=== PATIENT | male | born 1945 | race Caucasian/White ===

== ENCOUNTER → 2016-10-27 | Outpatient (CLI) | payer BC ==
[~2016-10-27] MED LIST: ALL180 PO; ASPEC81 PO; ASPI81TA28 PO; CLB/200 PO; CLB200 PO; CYCL0.052 OP; DICL1GEL12 TOP; FENO160T PO; FEXO1TAB46 PO; FLM4 PO; FLUO0.1S2 OP; LRTUNK; METO50TA7 PO; MISCCAP80 PO; MOME50SP5; MOME6000; MULT-188 PO; PRLSR20 PO; RSTOPS OP; SILD100T PO; STLS; TRAM-10 PO; [UNRECOGNIZED DRUG - CODE]; nutraview
== END | disposition home or self-care (01) ==
LOC: C.RDSM 13:45
PROVIDERS: ATTEND Physical Medicine & Rehabilitation
DX: M54.5 Low back pain (principal)

== ENCOUNTER → 2016-11-09 | Outpatient (CLI) | payer BC ==
[~2016-11-09] MED LIST changes: -FLM4 PO; -LRTUNK; -STLS; -nutraview
--- NOTE | 2016-11-15 06:43 | CODING QUERY MEDICAL NECESSITY ---
CQSUPPORTING DIAGNOSIS NEEDED A supporting diagnosis is required for the test/procedure performed on this patient in order for us to be reimbursed by the patient's insurance. Please provide a supporting diagnosis for the following test/procedure listed below next to the test name along with your signature. *If there is no additional diagnosis for this patient that would support the following test/procedure please document that below next to the test/procedure. Test(s)/Procedure(s) that require a supporting diagnosis: DOS 11/09/16 PROSTATE SPECIFIC ANTIGEN (PSA) TEST Provider Signature: Date: Thank you Colette [facility] Once completed, please kindly fax back to [phone] For questions please call [phone]
== END | disposition home or self-care (01) ==
LOC: C.LABBFT 11:20
PROVIDERS: ATTEND Urology
DX: N52.9 Male erectile dysfunction, unspecified (principal); N40.1 Benign prostatic hyperplasia with lower urinary tract symptoms

== ENCOUNTER → 2016-11-30 | Day surgery (SDC) | payer BC ==
[2016-10-30 12:49] VITALS: Ht 170.2 cm; Wt 86.4 kg
[~2016-11-30] VITALS: Ht 170.2 cm; Wt 86.4 kg
[~2016-11-30] MED LIST changes: +BUPIVACAINE 0.25% 2.5MG/ML PF 10 ML VIAL ONE; +LIDOCAINE HCL 1% MPF 5 ML VIAL ONE
--- NOTE | 2016-11-30 13:41 | History & Physical Bridge - [place] ---
H&P Re-Evaluation Bridge Note: I have examined the patient, reviewed the History & Physical and in the interval since the performance of the History & Physical I have noted the following changes of clinical significance: No changes noted
[2016-11-30 14:05] VITALS: BP 145/83; PULSE 61; TEMP 36.7; O2SAT 95
--- NOTE | 2016-11-30 14:09 | Discharge Instructions ---
Discharge Instructions Date of Service Nov 30, 2016. Visit Reason for Visit: Low Back Pain Discharge Discharge Diagnosis / Problem: low back pain Discharge Goals Goal(s): Decrease discomfort, Improve function Activity Recommendations Activity Limitations: resume your previous activity Anesthesia . Post Anesthesia Instructions: If you have had General Anesthesia or IV Sedation: * Do not drive today. * Resume driving when surgeon permits. * Do not make important decisions or sign legal documents today. * Call surgeon for: 1. Temperature elevations greater than 101 degrees F. 2. Uncontrollable pain. 3. Excessive bleeding. 4. Persistent nausea and vomiting. 5. Medication intolerance (nausea, vomiting or rash). * For nausea and vomiting use only clear liquids such as: tea, soda, bouillon until nausea subsides, then gradually increase diet as tolerated. * If you have any concerns or questions, call your surgeon's office. If physician is unavailable and it is an emergency, call 911 or go to the nearest emergency room. . Diet Recommendations Recommended Home Diet: resume previous diet Procedures Procedures Performed: LEFT L4-5, L5-S1 MEDIAL BRANCH BLOCKS Pending Studies Studies pending at discharge: no Medical Emergencies . Who to Call and When: Medical Emergencies: If at any time you feel your situation is an emergency, please call 911 immediately. . Non-Emergent Contact Non-Emergency issues call your: Specialist . . "Provider Documentation" section prepared by Jewel Reid. .
--- NOTE | 2016-11-30 14:29 | OPERATIVE REPORT ---
DATE OF OPERATION: 11/30/2016 PREOPERATIVE DIAGNOSIS: Chronic low back pain, lumbar facet arthropathy. POSTOPERATIVE DIAGNOSIS: Same. PROCEDURE: Left L4-5, L5-S1 medial branch blocks under fluoroscopic guidance. INDICATIONS: The patient is a 71-year-old male who presents today with a longstanding history of low back pain that occurred for a number of years. He describes that he has the most pain as a sharp and jagging pain localized to the L4-L5 lumbar region on the left side, usually worse with standing and twisting. He presents today for medial branch blocks to confirm if indeed this is the pain generator in the back. PHYSICAL EXAMINATION: GENERAL: Pleasant male seated comfortably His lumbar paraspinal muscles were palpated and noted to be nontender. He had tenderness to palpation of the left L4-L5 facet area. It was worse with extension, extension rotation. He had negative seated straight leg raises and positive Gui maneuver on the left. CONSENT: Verbal and written consent was obtained from the patient. Risks and benefits were reviewed. Risks include but are not limited to abscess and allergic reaction. The patient wishes to proceed. PROCEDURE: The patient was taken back to the special procedures room of the [facility] where he was maintained in a prone position. Backside was cleansed with Betadine x3 and a dry sterile dressing was applied. Fluoroscope was used to identify the left L4 transverse process junction, the left L5 transverse process junction and the left sacral ala. Overlying skin was anesthetized with 1.25 mL of lidocaine 1% with a 25 gauge 1.5-inch needle overlying each target. He then underwent placement of a 25 gauge 3.5 inch spinal needle at each target. Under fluoroscopic guidance, these were placed at the sites on bone. He then underwent injection after negative aspiration of 1 mL of bupivacaine 0.25% at each of the 3 sites. DISPOSITION: 1. The patient is taken out into the discharge recovery area where he will be discharged home once discharge criteria have been met. 2. Follow up in the [facility] office in 2-4 weeks. I attest to the content of the Intraoperative Record and any orders documented therein. Any exception s are noted below.
== END | disposition home or self-care (01) ==
LOC: X.SURG 12:51
PROVIDERS: ATTEND Physical Medicine & Rehabilitation
DX: M47.817 Spondylosis without myelopathy or radiculopathy, lumbosacral region (principal)

== ENCOUNTER → 2017-01-10 | Day surgery (SDC) | payer BC ==
[2016-12-25 08:47] VITALS: Ht 170.2 cm; Wt 86.4 kg
[~2017-01-10] VITALS: Ht 170.2 cm; Wt 86.4 kg
[~2017-01-10] MED LIST changes: -ALL180 PO; -ASPEC81 PO; -CLB200 PO; +IOPAMIDOL INJ 61% 15 ML VIAL ONE; +METHYLPREDNISOLONE ACETATE 80 MG/ML VIAL ONE; -MOME50SP5; -RSTOPS OP; -[UNRECOGNIZED DRUG - CODE]
[2017-01-10 15:55] VITALS: TEMP 36.6
--- NOTE | 2017-01-10 15:55 | Discharge Instructions ---
Discharge Instructions Date of Service Jan 10, 2017. Visit Reason for Visit: Low Back Pain Discharge Discharge Diagnosis / Problem: low back pain Discharge Goals Goal(s): Decrease discomfort, Improve function Activity Recommendations Activity Limitations: resume your previous activity Anesthesia . Post Anesthesia Instructions: If you have had General Anesthesia or IV Sedation: * Do not drive today. * Resume driving when surgeon permits. * Do not make important decisions or sign legal documents today. * Call surgeon for: 1. Temperature elevations greater than 101 degrees F. 2. Uncontrollable pain. 3. Excessive bleeding. 4. Persistent nausea and vomiting. 5. Medication intolerance (nausea, vomiting or rash). * For nausea and vomiting use only clear liquids such as: tea, soda, bouillon until nausea subsides, then gradually increase diet as tolerated. * If you have any concerns or questions, call your surgeon's office. If physician is unavailable and it is an emergency, call 911 or go to the nearest emergency room. . Diet Recommendations Recommended Home Diet: resume previous diet Procedures Procedures Performed: LEFT L4-5, L5-S1 MEDIAL BRANCH BLOCKS Pending Studies Studies pending at discharge: no Medical Emergencies . Who to Call and When: Medical Emergencies: If at any time you feel your situation is an emergency, please call 911 immediately. . Non-Emergent Contact Non-Emergency issues call your: Specialist . . "Provider Documentation" section prepared by Jewel Reid. .
[2017-01-10 16:02] VITALS: BP 154/80; PULSE 66; O2SAT 96
--- NOTE | 2017-01-10 16:06 | OPERATIVE REPORT ---
DATE OF OPERATION: 01/10/2017 PREOPERATIVE DIAGNOSES: Chronic low back pain, lumbar facet arthropathy. POSTOPERATIVE DIAGNOSES: Same. PROCEDURE: Left L4-5, L5-S1 medial branch blocks. INDICATIONS FOR PROCEDURE: The patient is a 71-year-old white male that underwent successful left L4-5, L5-S1 medial branch blocks, and he returns today for a similar procedure to accommodate insurance requirements of 2 positive diagnostic blocks that are accounting for his chronic left-sided low back pain. PHYSICAL EXAMINATION: Pleasant male seated comfortably. He has point tenderness to palpation of his left L5-S1 facet, worse with extension and rotation. He had no problems with flexion. He has normal lower extremity strength. Negative seated straight leg raises. CONSENT: Verbal and written consent was obtained from the patient. Risks and benefits were reviewed. Risks include but are not limited to abscess and allergic reaction. The patient wishes to proceed. DESCRIPTION OF PROCEDURE: The patient was taken back to the special procedures room of the [facility] where he was maintained in a prone position. Backside was cleansed with Betadine x3 and a dry sterile dressing was applied. Fluoroscope was used to identify the left L4 transverse process junction and the left L5 transverse process junction and the left sacral ala. Overlying skin was anesthetized with 1.5 mL of lidocaine 1% at each site with a 25-gauge 1.5-inch needle. A 25-gauge 3.5-inch spinal needle was then placed at each site targeting the bony target and then he was injected following negative aspiration with 1 mL of bupivacaine 0.25%. Injections were well tolerated. DISPOSITION: The patient is taken out into the discharge area once discharge criteria have been met and he will follow up in the [facility] office in 2-4 weeks. I attest to the content of the Intraoperative Record and any orders documented therein. Any exception s are noted below.
== END | disposition home or self-care (01) ==
LOC: X.SURG 14:07
PROVIDERS: ATTEND Physical Medicine & Rehabilitation
DX: M47.817 Spondylosis without myelopathy or radiculopathy, lumbosacral region (principal); G89.29 Other chronic pain; Z79.82 Long term (current) use of aspirin

== ENCOUNTER → 2017-01-25 | Day surgery (SDC) | payer BC ==
[2016-12-25 08:55] VITALS: Ht 170.2 cm; Wt 86.4 kg
[~2017-01-25] VITALS: Ht 170.2 cm; Wt 86.4 kg
[~2017-01-25] MED LIST changes: -IOPAMIDOL INJ 61% 15 ML VIAL ONE; +LIDOCAINE HCL 1% 20 ML VIAL ONE; -LIDOCAINE HCL 1% MPF 5 ML VIAL ONE; -METHYLPREDNISOLONE ACETATE 80 MG/ML VIAL ONE
[2017-01-25 14:01] VITALS: TEMP 37.1
--- NOTE | 2017-01-25 14:04 | Discharge Instructions ---
Discharge Instructions Date of Service Jan 25, 2017. Visit Reason for Visit: Low Back Pain Discharge Discharge Diagnosis / Problem: low back pain Discharge Goals Goal(s): Decrease discomfort, Improve function Activity Recommendations Activity Limitations: resume your previous activity Anesthesia . Post Anesthesia Instructions: If you have had General Anesthesia or IV Sedation: * Do not drive today. * Resume driving when surgeon permits. * Do not make important decisions or sign legal documents today. * Call surgeon for: 1. Temperature elevations greater than 101 degrees F. 2. Uncontrollable pain. 3. Excessive bleeding. 4. Persistent nausea and vomiting. 5. Medication intolerance (nausea, vomiting or rash). * For nausea and vomiting use only clear liquids such as: tea, soda, bouillon until nausea subsides, then gradually increase diet as tolerated. * If you have any concerns or questions, call your surgeon's office. If physician is unavailable and it is an emergency, call 911 or go to the nearest emergency room. . Diet Recommendations Recommended Home Diet: resume previous diet Procedures Procedures Performed: LEFT L4-5, L5-S1 RADIO FREQUENCY DENERVATION Pending Studies Studies pending at discharge: no Medical Emergencies . Who to Call and When: Medical Emergencies: If at any time you feel your situation is an emergency, please call 911 immediately. . Non-Emergent Contact Non-Emergency issues call your: Specialist . . "Provider Documentation" section prepared by Jewel Reid. .
[2017-01-25 14:15] VITALS: BP 137/81; PULSE 61; O2SAT 96
--- NOTE | 2017-01-25 14:16 | OPERATIVE REPORT ---
DATE OF OPERATION: 01/25/2017 PREOPERATIVE DIAGNOSES: Chronic low back pain and left L4-L5 and L5-S1 facet arthropathy. POSTOPERATIVE DIAGNOSES: Same. PROCEDURE: Left L4-L5 and L5-S1 facet radiofrequency denervation. INDICATIONS: The patient is a 71-year-old white male that underwent a successful left L4-L5 and L5-S1 medial branch blocks. This confirmed that this is indeed the generator of this pain. He presents today for a denervation procedure to provide him with more of a long lasting 10-12 months of pain relief. PHYSICAL EXAMINATION: Pleasant male seated comfortably. He has point tenderness to palpation of the lower left lumbar region. This is worse with extension and rotation. He has normal motor and sensory examination of lower extremities. CONSENT: Verbal and written consent was obtained from the patient. Risks and benefits were reviewed. Risks include, but are not limited to abscess, allergic reaction and nerve denervation. He wishes to proceed. DESCRIPTION OF PROCEDURE: The patient was taken back to the special procedures room of the [facility], where he was maintained in a prone position. Backside was cleansed with Betadine x3 and a dry sterile dressing was applied. Fluoroscope was used to identify the left L4 transverse process junction, left L5 transverse process junction and the left sacral ala. Overlying skin was anesthetized with 2 mL of lidocaine 1% at each site. A 22-gauge 10-cm Mathew needle contacted the each site. He then underwent sensory stimulation, provoking a response of 0.2 volts at L4, 0.3 at L5 and 0.3 at the sacral ala. Motor stimulation at each separate site did not provoke any muscle twitching outside of the lumbar paraspinal muscles. He then underwent anesthetization with 1 mL of lidocaine 1% at each site, first at the L4, then at L5 and then S1 sacral ala and then radiofrequency denervation at 80 degrees 100 seconds x2 at each site, first at L4, then L5 and then the sacral ala and then, this was followed by post-procedure anesthetization with bupivacaine 0.25%, 1 mL at each site. The procedure was well tolerated. DISPOSITION: The patient was taken out into the discharge recovery area, where he will be discharged home once discharge criteria have been met. I attest to the content of the Intraoperative Record and any orders documented therein. Any exception s are noted below.
== END | disposition home or self-care (01) ==
LOC: X.SURG 12:29
PROVIDERS: ATTEND Physical Medicine & Rehabilitation
DX: M54.5 Low back pain (principal); G89.29 Other chronic pain; M46.97 Unspecified inflammatory spondylopathy, lumbosacral region; Z79.82 Long term (current) use of aspirin; Z79.899 Other long term (current) drug therapy

== ENCOUNTER → 2017-02-16 | Outpatient (CLI) | payer BC ==
[~2017-02-16] MED LIST changes: -BUPIVACAINE 0.25% 2.5MG/ML PF 10 ML VIAL ONE; -LIDOCAINE HCL 1% 20 ML VIAL ONE
--- NOTE | 2017-02-16 16:58 | DIAGNOSTIC IMAGING REPORT ---
LEFT SHOULDER MRI HISTORY: LEFT SHOULDER PAIN TECHNIQUE: Multiplanar multisequence MRI of the left shoulder was performed without contrast. COMPARISON STUDY: Left shoulder radiograph 12/15/2016. FINDINGS: AC joint: Moderate AC joint arthrosis demonstrated by edema both within and surrounding the joint space as well as joint space narrowing and small marginal osteophytes. Rotator cuff: The infraspinatus, teres minor, and subscapularis tendons appear intact. Focal full-thickness tear along the anterior fibers of the supraspinatus tendon which measures 14 x 9 mm. No significant fatty atrophy or retraction of the supraspinatus at this time. There is fluid within the subacromial/subdeltoid bursa due to the full-thickness tear. Labrum: Suboptimal evaluation due to the motion artifact. There appears to be degeneration of the labrum without a definite tear. Biceps tendon: Suboptimal evaluation due to motion artifact. However, the biceps tendon appears to be intact. Bones: No fracture or dislocation. Cartilage: Cartilage spaces are maintained for age. Miscellaneous: Small joint effusion primarily located within the subcoracoid bursa. IMPRESSION: 1. A focal full-thickness tear within the supraspinatus tendon. 2. Suboptimal evaluation of the labrum due to motion artifact. There is degeneration of the labrum without a definite tear. 3. Moderate AC joint arthrosis. Electronically signed by: Bharath Zarate M.D. 02/16/2017 4:57 PM Dictated Date/Time: 02/16/2017 4:50 PM
== END | disposition home or self-care (01) ==
LOC: C.MRIBC 15:21
PROVIDERS: ATTEND Orthopaedic Surgery
DX: M75.122 Complete rotator cuff tear or rupture of left shoulder, not specified as traumatic (principal)

== ENCOUNTER → 2017-03-12 | Outpatient (CLI) | payer BC ==
[~2017-03-12] MED LIST changes: +CYAN10005 PO; +MAGN1CAP2 PO
[2017-03-12 12:22] LABS: HEMATOCRIT 43.6 % (42-52); MEAN CELL VOLUME 100.7 fL (80-100); MEAN CORPUSCULAR HEMOGLOBIN 33.7 pg (25-34); MEAN CORPUSCULAR HGB CONC 33.5 g/dl (32-36); MEAN PLATELET VOLUME 11.6 fL (7.4-10.4); PLATELET COUNT 206 K/uL (130-400); RED BLOOD COUNT 4.33 M/uL (4.7-6.1); WHITE BLOOD COUNT 6.72 K/uL (4.8-10.8)
[2017-03-12 12:40] LABS: BLOOD UREA NITROGEN 23 mg/dl (7-18); BUN/CREATININE RATIO 16.7 (10-20); CALCIUM 8.8 mg/dl (8.5-10.1); CARBON DIOXIDE 27 mmol/L (21-32); CHLORIDE 107 mmol/L (98-107); CREATININE 1.35 mg/dl (0.60-1.40); GLUCOSE 104 mg/dl (70-99); POTASSIUM 4.5 mmol/L (3.5-5.1); SODIUM 139 mmol/L (136-145)
== END | disposition home or self-care (01) ==
LOC: C.LAB 09:48
PROVIDERS: ATTEND Orthopaedic Surgery
DX: M25.512 Pain in left shoulder (principal)

== ENCOUNTER → 2017-03-16 | Day surgery (SDC) | payer BC ==
[2017-03-12 11:25] VITALS: Ht 170.2 cm; Wt 87.3 kg
[~2017-03-16] VITALS: Ht 170.2 cm; Wt 87.3 kg
[~2017-03-16] MED LIST changes: +BUPIVACAINE 0.25% 2.5MG/ML PF 10 ML VIAL ONE; +IOPAMIDOL INJ 61% 15 ML VIAL ONE; +KETO10TA PO; +LIDOCAINE HCL 1% MPF 5 ML VIAL ONE; +OXYC-57 PO
[2017-03-16 15:28] VITALS: TEMP 36.6
--- NOTE | 2017-03-16 15:28 | Discharge Instructions ---
Discharge Instructions Date of Service Mar 16, 2017. Visit Reason for Visit: Sacroiliitis Discharge Discharge Diagnosis / Problem: low back pain Discharge Goals Goal(s): Decrease discomfort, Improve function Activity Recommendations Activity Limitations: resume your previous activity Anesthesia . Post Anesthesia Instructions: If you have had General Anesthesia or IV Sedation: * Do not drive today. * Resume driving when surgeon permits. * Do not make important decisions or sign legal documents today. * Call surgeon for: 1. Temperature elevations greater than 101 degrees F. 2. Uncontrollable pain. 3. Excessive bleeding. 4. Persistent nausea and vomiting. 5. Medication intolerance (nausea, vomiting or rash). * For nausea and vomiting use only clear liquids such as: tea, soda, bouillon until nausea subsides, then gradually increase diet as tolerated. * If you have any concerns or questions, call your surgeon's office. If physician is unavailable and it is an emergency, call 911 or go to the nearest emergency room. . Diet Recommendations Recommended Home Diet: resume previous diet Pending Studies Studies pending at discharge: no Medical Emergencies . Who to Call and When: Medical Emergencies: If at any time you feel your situation is an emergency, please call 911 immediately. . Non-Emergent Contact Non-Emergency issues call your: Specialist . . "Provider Documentation" section prepared by Jewel Reid. .
[2017-03-16 15:34] VITALS: BP 147/89; PULSE 71; O2SAT 95
--- NOTE | 2017-03-16 15:50 | OPERATIVE REPORT ---
DATE OF OPERATION: 03/16/2017 PREOPERATIVE DIAGNOSES: Chronic low back pain and left sacroiliitis. POSTOPERATIVE DIAGNOSES: Same. PROCEDURE: Left sacroiliac joint injection under fluoroscopic guidance. INDICATIONS: The patient is a 72-year-old white male who underwent denervation of the facet joint and had done well. Then, he began having pain a little bit lower than that area. It is localizing more to the sacroiliac joint. He presents today for a sacroiliac joint injection to try to relieve some of his lower left-sided pain. PHYSICAL EXAMINATION: Pleasant male seated comfortably. He has point tenderness to palpation over his left sacroiliac area. It is worse with extension. He has normal motor and sensory examination. Positive Gui maneuver, positive sacral distraction and compression maneuvers. CONSENT: Verbal and written consent was obtained from the patient. Risks and benefits were reviewed. Risks include, but are not limited to abscess and allergic reaction. He wishes to proceed. DESCRIPTION OF PROCEDURE: The patient was taken back to the special procedures room of the [facility], where he was maintained in a prone position. Backside was cleansed with Betadine x3. Dry sterile dressing was applied. Fluoroscope was used to identify the left sacroiliac joint. The overlying skin was anesthetized with 2.5 mL of lidocaine 1% with a 25-gauge 1-1/2 inch needle. A 25-gauge 3-1/2 spinal needle was then placed and under fluoroscopic guidance, was guided down to the SI joint. Isovue-300 contrast 0.25 mL was injected in which demonstrated an intra-articular pattern. He then underwent injection after negative aspiration of 40 mg of Depo-Medrol and 1.5 mL of bupivacaine 0.25%. Injection was well tolerated. DISPOSITION: 1. The patient was taken out into the discharge recovery area, where he will be discharged home once discharge criteria have been met. 2. Follow up in the [facility] office in 4 weeks' time. I attest to the content of the Intraoperative Record and any orders documented therein. Any exception s are noted below.
== END | disposition home or self-care (01) ==
LOC: X.SURG 14:06
PROVIDERS: ATTEND Physical Medicine & Rehabilitation
DX: M46.1 Sacroiliitis, not elsewhere classified (principal)

== ENCOUNTER → 2017-03-22 | Day surgery (SDC) | payer BC ==
[2017-03-12 12:07] VITALS: Ht 170.2 cm; Wt 87.3 kg
[~2017-03-22] VITALS: Ht 170.2 cm; Wt 87.3 kg
[~2017-03-22] MED LIST changes: +ATROPINE SULFATE 0.1 MG/ML 5ML SYR IV PRN; -BUPIVACAINE 0.25% 2.5MG/ML PF 10 ML VIAL ONE; +BUPIVACAINE/EPINEPHRINE 0.25% 1:200,000 30 ML VIAL ONE; +BUPIVACAINE/EPINEPHRINE 0.5% MPF 1:200,000 30 ML VIAL ONE; +CLINDAMYCIN PHOS 150 MG/ML 2 ML VIAL IV SCH; +DEXAMETHASONE SOD INJ 4 MG/ML VIAL ONE; +EpHEDrine SULFATE INJ 50 MG/ML AMP IV PRN; +EpINEphrine INJ 1MG/ML AMP 1 MG/ML AMP ONE; +FENTANYL CITRATE INJ 50 MCG/1 ML 2 ML VIAL IV PRN; +FENTANYL CITRATE INJ 50 MCG/1 ML 2 ML VIAL ONE; -IOPAMIDOL INJ 61% 15 ML VIAL ONE; +LACTATED RINGER'S 1000ML 1,000 ML IV SCH; -LIDOCAINE HCL 1% MPF 5 ML VIAL ONE; +LIDOCAINE HCL 2% 2 ML VIAL (20MG/ML) ONE; -METO50TA7 PO; +METO50TA8 PO; +MIDAZOLAM HCL 1 MG/ML 2ML VIAL ONE; +ONDANSETRON INJ 2 MG/ML 2 ML VIAL IV PRN; +ONDANSETRON INJ 2 MG/ML 2 ML VIAL ONE; +OXYCODONE/ACETAMINOPHEN 5-325 TAB PO PRN; +PROPOFOL IV EMULSION 10 MG/ML 20 ML VIAL IV ONE; +SODIUM CHLORIDE 0.9% 1000ML 1,000 ML IV SCH
--- NOTE | 2017-03-22 10:29 | [facility] Post Operative Brief Note ---
Immediate Operative Summary Operative Date Mar 22, 2017. Pre-Operative Diagnosis Left Shoulder Full Thickness Cuff Tear Post-Operative Diagnosis same Procedure(s) Performed Left Shoulder Arthroscopy, Medium Rotator Cuff Repair, Open Bicep Tenodesis Surgeon Dr Gonzalez Intranet Developer Surgeon(s) MILES Grullon Estimated Blood Loss 5cc Findings as above Specimens none Complication(s) None Disposition Recovery Room / PACU
[2017-03-22 10:33] VITALS: TEMP 36.5
--- NOTE | 2017-03-22 10:35 | Discharge Instructions-SurgCtr ---
Discharge Instructions Date of Service Mar 22, 2017. Visit Reason for Visit: Left Shoulder Full Thickness Cuff Tear Discharge Discharge Diagnosis / Problem: SAME ABOVE Discharge Goals Goal(s): Decrease discomfort, Improve function Medications Stopped Medications Name(s): celebrex stopped. last dose 1 week ago. Restart Stopped Medication(s): MAY RESTART WHEN FINISHED WITH TORADOL TAKE TORADOL EVERY 8 HOURS WITH FOOD Activity Recommendations Activity Limitations: as noted below Lifting Limitations: until after follow-up appointment Exercise/Sports Limitations: until after follow-up appointment Shower/Bathe: tomorrow Anesthesia . Post Anesthesia Instructions: If you have had General Anesthesia or IV Sedation: * Do not drive today. * Resume driving when surgeon permits. * Do not make important decisions or sign legal documents today. * Call surgeon for: 1. Temperature elevations greater than 101 degrees F. 2. Uncontrollable pain. 3. Excessive bleeding. 4. Persistent nausea and vomiting. 5. Medication intolerance (nausea, vomiting or rash). * For nausea and vomiting use only clear liquids such as: tea, soda, bouillon until nausea subsides, then gradually increase diet as tolerated. * If you have any concerns or questions, call your surgeon's office. If physician is unavailable and it is an emergency, call 911 or go to the nearest emergency room. . Instructions / Follow-Up Instructions / Follow-Up MEDICATIONS: * Resume previous medications unless instructed otherwise by your surgeon. * Always take pain medication on a full stomach or with food to avoid upset stomach. * Do not drink alcohol or drive while taking narcotics. * Ibuprofen or Tylenol may be taken if narcotic not needed. SPECIAL CARE INSTRUCTIONS: __ None _X_ Keep extremity elevated and iced x 48 hours; apply ice 20-30 minutes 8-10 times/day. May remove at night. __ Sling __24 hrs/day __ Remove at night _X_ Shoulder Immobilizer (MAY REMOVE AFTER 48 HOURS ONLY TO SHOWER) _X_ 24 hrs/day __ Remove at night _X_ Dressing __ Maintain until seen in office, may shower with plastic over site _X_ Remove dressings in 24-48 hours and then may shower _X_ Cover incisions with band-aids after showering __ Do not remove steri-strips Call physician if chills or temperature rises above 102 degrees or pain unrelieved by prescribed pain medications at . . Diet Recommendations Home Diet: no limitations Fluid Restriction: None Procedures Procedures Performed: Left Shoulder Arthroscopy, Medium Rotator Cuff Repair, Open Bicep Tenodesis Pending Studies Studies pending at discharge: no Work Instructions Return To Work: after follow-up Lifting Limitations: NO LIFTING WITH LEFT ARM Medical Emergencies . Who to Call and When: Medical Emergencies: If at any time you feel your situation is an emergency, please call 911 immediately. . Non-Emergent Contact Non-Emergency issues call your: Primary Care Provider Call Non-Emergent contact if: you have a fever, temperature is above 101.5 . . "Provider Documentation" section prepared by Jarrod Alicea. .
[2017-03-22 11:25] VITALS: BP 148/88; PULSE 74; O2SAT 95
--- NOTE | 2017-03-22 11:37 | Anesthesiology Progress Note ---
Anesthesia Post Op Note Date & Time Mar 22, 2017 at 11:37 Vital Signs Pain Intensity: 0 Vital Signs Past 12 Hours Date Time Temp Pulse Resp B/P (MAP) Pulse Ox O2 Delivery O2 Flow Rate FiO2 03/22/17 11:25 74 18 148/88 (108) 95 Room Air 03/22/17 10:33 36.5 79 16 122/82 (95) 93 Room Air 03/22/17 08:58 62 03/22/17 08:58 62 22 99 03/22/17 08:57 63 25 99 03/22/17 08:57 64 03/22/17 08:56 135/76 03/22/17 08:52 59 03/22/17 08:52 60 23 99 03/22/17 08:51 136/79 03/22/17 08:50 59 03/22/17 08:50 59 23 99 03/22/17 08:46 137/84 03/22/17 08:45 58 45 98 03/22/17 08:45 52 03/22/17 08:41 128/78 03/22/17 08:40 57 7 97 03/22/17 08:40 54 03/22/17 08:38 141/90 03/22/17 08:35 59 03/22/17 08:35 63 0 96 03/22/17 08:30 65 0 96 03/22/17 08:30 63 03/22/17 08:25 66 0 96 03/22/17 08:25 67 03/22/17 08:20 68 0 96 03/22/17 08:20 64 03/22/17 08:15 54 03/22/17 08:15 55 0 94 03/22/17 08:10 53 0 94 03/22/17 08:10 54 03/22/17 08:05 54 0 94 03/22/17 08:05 55 03/22/17 08:00 56 0 95 03/22/17 08:00 56 03/22/17 07:55 0 03/22/17 06:41 36.4 60 18 146/80 (102) 95 Room Air Notes Mental Status: alert / awake / arousable, participated in evaluation Pt Amnestic to Procedure: Yes Nausea / Vomiting: adequately controlled Pain: adequately controlled Airway Patency, RR, SpO2: stable & adequate BP & HR: stable & adequate Hydration State: stable & adequate Anesthetic Complications: no major complications apparent
--- NOTE | 2017-03-22 11:38 | OPERATIVE REPORT ---
DATE OF OPERATION: 03/22/2017 PREOPERATIVE DIAGNOSIS: Medium sized left rotator cuff tear. POSTOPERATIVE DIAGNOSIS: Same. PROCEDURE: Left shoulder diagnostic arthroscopy with limited debridement, acromioplasty and medium sized rotator cuff repair. SURGEON: Dr. Juan Gonzalez. RECEPTION INTERVIEWER: Dayron Alicea PA-C, whose assistance was necessary for positioning the arm and helping with instrumentation. ANESTHESIA: Sedation with a left interscalene nerve block. COMPLICATIONS: None. CONDITION: Stable to PACU. INDICATIONS: Abelardo is a very pleasant 72-year-old male who was swinging a golf club back in August when he felt a tearing of his right shoulder. MRI and clinical examination were diagnostic for medium sized rotator cuff tear. After failing conservative treatment, he elected to undergo arthroscopy. DESCRIPTION OF PROCEDURE: On 03/22/2017, he arrived at [facility] for the above procedure. He was seen in the preoperative holding area and the operative extremity was identified and signed. He was given preoperative antibiotic and left interscalene nerve block. He was taken back to the operating room, laid on the table in supine position and put under basic sedation. The left shoulder was then prepped and draped in sterile fashion. Time-out was done and the patient and operative extremity was properly identified. A scope was introduced in the posterior portal. Diagnostic arthroscopy showed no cartilage damage to the humeral head or the glenoid. There was some fraying of the anterior labrum. The biceps tendon looked okay. From the articular side, there was no evidence of tears. The supraspinatus, infraspinatus, teres minor and subscapularis looked okay. An anterior portal was made. A shaver was used to do a limited debridement of the intraarticular structures and the biceps tendon was pulled into the joint and showed no evidence of pathology. The scope was then put into the subacromial space. A lateral portal was made. A shaver was used to do a complete subacromial and subdeltoid bursectomy. There was a strange bursal sided tear of the rotator cuff. It started in the anterior lateral footprint and extended posterior medially towards the infraspinatus. The footprint was not exposed, but the tear was near complete down to bone. There was a tear that was amenable to margin convergence. An ablator was then used to tease the coracoacromial ligament off the undersurface of the acromion and a 5-0 lissette was used to complete an acromioplasty of a Bigliani type 3 acromion. A shaver was used to remove any excess debris. Attention was then turned to the rotator cuff. An additional anterolateral portal was made and Sarah cannulas were placed in each of the lateral portals. I felt this was best treated with margin convergence. Three sutures were placed for a margin convergence repair and an Arthrex FiberLink was used to tag the anterior lateral flap and bring it down to a single 5.5 mm BioComposite SwiveLock suture anchors. This gave a nice anatomic repair. Multiple pictures were taken. The scope was put back into the glenohumeral joint. There was no disruption of the articular margin. The biceps tendon was pulled into the joint and I still found no evidence of pathology. The arthroscopic instruments were removed from the shoulder. Portal sites were closed with 3-0 nylon. He was then placed in a soft dressing and abduction arm sling. He was then extubated, [facility] and taken to the postanesthesia care unit in stable condition. He tolerated the procedure well. I attest to the content of the Intraoperative Record and any orders documented therein. Any exception s are noted below.
== END | disposition home or self-care (01) ==
LOC: X.SURG 06:31
PROVIDERS: ATTEND Orthopaedic Surgery
DX: S46.012A Strain of muscle(s) and tendon(s) of the rotator cuff of left shoulder, initial encounter (principal); X58.XXXA Exposure to other specified factors, initial encounter; Y93.53 Activity, golf; G47.33 Obstructive sleep apnea (adult) (pediatric); I10 Essential (primary) hypertension; Z88.0 Allergy status to penicillin; Z85.828 Personal history of other malignant neoplasm of skin

== ENCOUNTER → 2017-07-05 | Outpatient (CLI) | payer BC ==
[~2017-07-05] MED LIST changes: -ATROPINE SULFATE 0.1 MG/ML 5ML SYR IV PRN; -BUPIVACAINE/EPINEPHRINE 0.25% 1:200,000 30 ML VIAL ONE; -BUPIVACAINE/EPINEPHRINE 0.5% MPF 1:200,000 30 ML VIAL ONE; -CLINDAMYCIN PHOS 150 MG/ML 2 ML VIAL IV SCH; -DEXAMETHASONE SOD INJ 4 MG/ML VIAL ONE; -EpHEDrine SULFATE INJ 50 MG/ML AMP IV PRN; -EpINEphrine INJ 1MG/ML AMP 1 MG/ML AMP ONE; -FENTANYL CITRATE INJ 50 MCG/1 ML 2 ML VIAL IV PRN; -FENTANYL CITRATE INJ 50 MCG/1 ML 2 ML VIAL ONE; -KETO10TA PO; -LACTATED RINGER'S 1000ML 1,000 ML IV SCH; -LIDOCAINE HCL 2% 2 ML VIAL (20MG/ML) ONE; -MIDAZOLAM HCL 1 MG/ML 2ML VIAL ONE; -ONDANSETRON INJ 2 MG/ML 2 ML VIAL IV PRN; -ONDANSETRON INJ 2 MG/ML 2 ML VIAL ONE; -OXYCODONE/ACETAMINOPHEN 5-325 TAB PO PRN; -PROPOFOL IV EMULSION 10 MG/ML 20 ML VIAL IV ONE; -SODIUM CHLORIDE 0.9% 1000ML 1,000 ML IV SCH
== END | disposition home or self-care (01) ==
LOC: C.PATHSPEC 17:30
PROVIDERS: ATTEND Dermatology
DX: L57.0 Actinic keratosis (principal); D04.62 Carcinoma in situ of skin of left upper limb, including shoulder

== ENCOUNTER → 2017-07-11 | Day surgery (SDC) | payer BC ==
[2017-06-14 10:11] VITALS: Ht 170.2 cm; Wt 87.3 kg
[~2017-07-11] VITALS: Ht 170.2 cm; Wt 87.3 kg
[~2017-07-11] MED LIST changes: +ATROPINE SULFATE 0.1 MG/ML 5ML SYR IV PRN; +EpHEDrine SULFATE INJ 50 MG/ML AMP IV PRN; +LACTATED RINGER'S 1000ML 1,000 ML IV SCH; +LIDOCAINE HCL 1% 20 ML VIAL ONE
--- NOTE | 2017-07-11 08:46 | [facility] Post Operative Brief Note ---
Immediate Operative Summary Operative Date Jul 11, 2017. Pre-Operative Diagnosis Sacrolitis Post-Operative Diagnosis Same as pre-op Procedure(s) Performed Left Sacroiliac Joint Cooled Radio Frequency Denervation Surgeon Manager Audit Surgeon(s) None Estimated Blood Loss 0 Findings Consistent with Post-Op Diagnosis Specimens None Drains None Anesthesia Type MAC Complication(s) none Disposition Disposition:
[2017-07-11 08:48] VITALS: TEMP 36.5
--- NOTE | 2017-07-11 08:48 | Discharge Instructions ---
Discharge Instructions Date of Service Jul 11, 2017. Visit Reason for Visit: Sacroiliitis Discharge Discharge Diagnosis / Problem: low back pain Discharge Goals Goal(s): Decrease discomfort, Improve function Activity Recommendations Activity Limitations: resume your previous activity Anesthesia . Post Anesthesia Instructions: If you have had General Anesthesia or IV Sedation: * Do not drive today. * Resume driving when surgeon permits. * Do not make important decisions or sign legal documents today. * Call surgeon for: 1. Temperature elevations greater than 101 degrees F. 2. Uncontrollable pain. 3. Excessive bleeding. 4. Persistent nausea and vomiting. 5. Medication intolerance (nausea, vomiting or rash). * For nausea and vomiting use only clear liquids such as: tea, soda, bouillon until nausea subsides, then gradually increase diet as tolerated. * If you have any concerns or questions, call your surgeon's office. If physician is unavailable and it is an emergency, call 911 or go to the nearest emergency room. . Diet Recommendations Recommended Home Diet: resume previous diet Procedures Procedures Performed: Left Sacroiliac Joint Cooled Radio Frequency Denervation Pending Studies Studies pending at discharge: no Medical Emergencies . Who to Call and When: Medical Emergencies: If at any time you feel your situation is an emergency, please call 911 immediately. . Non-Emergent Contact Non-Emergency issues call your: Specialist . . "Provider Documentation" section prepared by Jewel Reid. .
--- NOTE | 2017-07-11 09:06 | Anesthesia Progress Nt - [facility] ---
Anesthesia Post Op Note Date & Time Jul 11, 2017 at 09:06 Vital Signs Pain Intensity: 0 Vital Signs Past 12 Hours Date Time Temp Pulse Resp B/P (MAP) Pulse Ox O2 Delivery O2 Flow Rate FiO2 07/11/17 08:48 36.5 65 16 150/87 (108) 96 Room Air 07/11/17 07:11 36.2 59 20 129/66 (87) 94 Room Air Notes Mental Status: alert / awake / arousable, participated in evaluation Pt Amnestic to Procedure: Yes Nausea / Vomiting: adequately controlled Pain: adequately controlled Airway Patency, RR, SpO2: stable & adequate BP & HR: stable & adequate Hydration State: stable & adequate Anesthetic Complications: no major complications apparent
[2017-07-11 09:12] VITALS: BP 137/87; PULSE 60; O2SAT 95
--- NOTE | 2017-07-11 10:51 | OPERATIVE REPORT ---
DATE OF OPERATION: 07/11/2017 PREOPERATIVE DIAGNOSIS: Left sacroiliitis. POSTOPERATIVE DIAGNOSIS: Left sacroiliitis. PROCEDURE: Left radiofrequency cooled SI joint denervation. INDICATIONS: The patient is a 72-year-old white male received good results from a SI joint injection that was diagnostically helpful for his pain; however, it lasted a short period of time. Decision is made to proceed with a denervation procedure, which should provide him with months to a year of relief of the sacroiliac joint pain that he quantifies range currently in the 5-8/10 category. PHYSICAL EXAMINATION: Pleasant male seated comfortably. He has point tenderness to palpation of his left SI joint, which is worse with extension and rotation. Negative seated straight leg raises with a positive Gui maneuver. CONSENT: Verbal and written consent was obtained from the patient. Risks and benefits were reviewed. Risks include but are not limited to infection, allergic reaction in cooled denervation. He wishes to proceed. PROCEDURE: The patient was taken back into OR #[facility] of the [facility], where he was maintained in a prone position. Backside was cleansed with Betadine x3 and a dry sterile dressing was applied. Fluoroscope was used to identify the sacrum and the overlying skin lateral to S1 foramen was anesthetized with 7 mL of lidocaine 1% with a 25 gauge 1/2 inch needle. A cooling needle was then placed at 8 separate points and had 2 minutes and 30 seconds of 60 degrees Celsius cooling. The patient was awake for the entire procedure and could converse freely. The 8 sites in the order and that they were done, where the left sacral ala, the left lateral superior S1 outside of the foraminal area, the left lateral S1 foraminal region, the left S1 inferior lateral foraminal region, the left superior S2 outer foraminal region, the left S2 lateral foraminal region, the left S2 inferior lateral foramen region, and lastly the left S3 superior lateral foraminal region and all of the targets were on the bone, outside of the foramen itself. Procedure was well tolerated. DISPOSITION: 1. He was taken out into the discharge recovery area, where he will be discharged home once discharge criteria were met. 2. Follow up in the [facility] office in 4 weeks' time. I attest to the content of the Intraoperative Record and any orders documented therein. Any exception s are noted below.
== END | disposition home or self-care (01) ==
LOC: X.SURG 06:52
PROVIDERS: ATTEND Physical Medicine & Rehabilitation
DX: M46.1 Sacroiliitis, not elsewhere classified (principal); G47.33 Obstructive sleep apnea (adult) (pediatric); I10 Essential (primary) hypertension; E78.5 Hyperlipidemia, unspecified; Z79.82 Long term (current) use of aspirin; Z88.0 Allergy status to penicillin

== ENCOUNTER → 2017-07-23 | Outpatient (CLI) | payer BC ==
[~2017-07-23] MED LIST changes: -ATROPINE SULFATE 0.1 MG/ML 5ML SYR IV PRN; -EpHEDrine SULFATE INJ 50 MG/ML AMP IV PRN; -LACTATED RINGER'S 1000ML 1,000 ML IV SCH; -LIDOCAINE HCL 1% 20 ML VIAL ONE
--- NOTE | 2017-07-23 16:13 | DIAGNOSTIC IMAGING REPORT ---
CERVICAL WITHOUT CONTRAST HISTORY: Pain. Neuropathy. CERVICAL RADICULOPATHY TECHNIQUE: Multiplanar multisequence MRI of the cervical spine was performed without the use of contrast. COMPARISON STUDY: None. FINDINGS: Moderate degenerative disc change throughout the entire cervical region. Degenerative irregularity of the vertebral endplates throughout. Signal characteristics of the cervical cord based on the sagittal images are unremarkable. C2-C3: Broad-based bulging disc in contact with but showing no significant deformity of the cervical cord. Moderate narrowing of the neuroforamina bilaterally. C3-C4: Mild broad-based disc herniation. Significant osteophytic narrowing of the neuroforamina bilaterally. C4-C5: Moderate broad-based disc herniation. Mild impact anterior cervical cord. Significant osteophytic narrowing of the neuroforamina bilaterally C5-C6: Mild broad-based disc herniation. Moderate osteophytic narrowing of the neuroforamina bilaterally. C6-C7: Right central bulging disc with minimal impact anterior right cervical cord. Significant osteophytic narrowing of the neuroforamina bilaterally C7-T1: Minimal osteophytic narrowing of the neuroforamina bilaterally IMPRESSION: 1. Mild/moderate broad-based disc herniations at virtually all levels of the cervical region from C2 through C6. 2. Moderate to severe multilevel osteophytic narrowing of the neuroforamina bilaterally. 3. Significant degenerative disc changes throughout. 4. No evidence for a high-grade component of spinal stenosis The above report was generated using voice recognition software. It may contain grammatical, syntax or spelling errors. Electronically signed by: Abelardo Stevenson M.D. 07/23/2017 4:11 PM Dictated Date/Time: 07/23/2017 4:05 PM
== END ==
LOC: C.MRIBC 14:33
PROVIDERS: ATTEND Orthopaedic Surgery
DX: M54.12 Radiculopathy, cervical region (principal); M50.221 Other cervical disc displacement at C4-C5 level; M50.222 Other cervical disc displacement at C5-C6 level; M50.21 Other cervical disc displacement, high cervical region

== ENCOUNTER → 2017-08-16 | Outpatient (CLI) | payer BC | END | disposition home or self-care (01) | LOC: C.PATHSPEC 19:15 | PROVIDERS: ATTEND Plastic Surgery | DX: L90.5 Scar conditions and fibrosis of skin (principal) ==

== ENCOUNTER → 2017-11-02 | Outpatient (CLI) | payer BC | END | disposition home or self-care (01) | LOC: C.LAB1850 09:58 | PROVIDERS: ATTEND Urology | DX: N40.1 Benign prostatic hyperplasia with lower urinary tract symptoms (principal) ==

== ENCOUNTER 2018-12-24 17:34 | Inpatient (IN) ==
[2018-12-24] MEDS ORDERED: SODIUM CHLORIDE 0.9% 1000ML 1,000 ML IV SCH (19:30)
[2018-12-24 19:54] LABS: Basophils # (auto) 0.02 K/uL (0-0.2); Basophils % (auto) 0.2 %; Eosinophils # (auto) 0.12 K/uL (0-0.5); Eosinophils % (auto) 1.2 %; Hematocrit (blood only) 40.1 % (42-52); Hemoglobin 13.9 g/dL (14.0-18.0); Immature Granulocytes # (auto) 0.04 K/uL (0.00-0.02); Immature Granulocytes % (auto) 0.4 %; Lymphocytes # (auto) 1.44 K/uL (1.2-3.4); Lymphocytes % (auto) 14.5 %; Mean Corpuscular Hemoglobin 33.6 pg (25-34); Mean Corpuscular Hgb Conc 34.7 g/dL (32-36); Mean Corpuscular Volume 96.9 fL (80-100); Mean Platelet Volume 12.5 fL (7.4-10.4); Monocytes # (auto) 0.75 K/uL (0.11-0.59); Monocytes % (auto) 7.6 %; Neutrophils # (auto) 7.54 K/uL (1.4-6.5); Neutrophils % (auto) 76.1 %; Platelet Count 204 K/uL (130-400); RDW Coefficient of Variation 12.4 % (11.5-14.5); RDW Standard Deviation 43.9 fL (36.4-46.3); Red Blood Count 4.14 M/uL (4.7-6.1); White Blood Count 9.91 K/uL (4.8-10.8)
--- NOTE | 2018-12-24 19:55 | XRay Report ---
XR chest 1V portable HISTORY: 73 years-old Male Chest Pain acute atypical chest pain COMPARISON: Chest radiograph 12/28/2009 TECHNIQUE: Portable AP view of the chest FINDINGS: Cardiomediastinal and hilar silhouettes are unchanged. Calcified plaque of the thoracic aortic arch. Interstitial coarsening of the lung bases suggest atelectasis/scarring. No pneumothorax, pleural effu leona or overt pulmonary edema. Bones of the chest appear grossly intact. IMPRESSION: No acute process. The above report was generated using voice recognition software. It may contain grammatical, syntax o r spelling errors. Electronically signed by: Lewis Kennedy M.D. 12/24/2018 7:53 PM
[2018-12-24 20:06] LABS: Partial Thromboplastin Ratio 0.9; Partial Thromboplastin Time 24.5 Seconds (21.0-31.0); Prothrombin Time 10.7 Seconds (9.0-12.0)
[2018-12-24 20:09] LABS: Alanine Aminotransferase 102 U/L (12-78); Albumin Level 3.6 gm/dl (3.4-5.0); Aspartate Aminotransferase 58 U/L (15-37); BUN Creatinine Ratio 16.5 (10-20); Bilirubin Direct 0.9 mg/dl (0-0.2); Bilirubin,Total 1.3 mg/dl (0.2-1); Blood Urea Nitrogen 36 mg/dl (7-18); Calcium 9.8 mg/dl (8.5-10.1); Carbon Dioxide 24 mmol/L (21-32); Chloride 95 mmol/L (98-107); Creatinine Clr Calc Pharmacy 30.3 ml/min; Est GFR (African American) 33.3; Est GFR (Non-African American) 28.7; Glucose 532 mg/dl (70-99); Lipase 218 U/L (73-393); Potassium 4.4 mmol/L (3.5-5.1); Sodium 128 mmol/L (136-145); Total Protein 7.5 gm/dl (6.4-8.2)
[2018-12-24 20:11] LABS: Alkaline Phosphatase 264 U/L (45-117); Troponin I < 0.015 ng/ml (0-0.045)
[2018-12-24 20:25] LABS: Beta-Hydroxybutyrate 1.51 mg/dl (0.2-2.81)
--- NOTE | 2018-12-24 21:24 | Ultrasound Report ---
ABDOMINAL ULTRASOUND, RIGHT UPPER QUADRANT HISTORY: Right upper quadrant pain.. COMPARISON: Abdominal CT 10/30/2008. FINDINGS: Pancreas: There is a 6.7 cm hypoechoic mass superior to and possibly involving the pancreas. This cou ld Liver: Multiple hepatic masses with the largest measuring 7.0 cm. Gallbladder: No gallbladder wall thickening. No gallstones. CBD: 4 mm. Right kidney: No hydronephrosis. IMPRESSION: A 6.7 cm hypoechoic mass either within or superior to the pancreas. There are also multiple hepatic m asses concerning for metastatic disease. A follow-up abdominal CT or MRI is recommended for further e valuation. Electronically signed by: Bharath Zarate M.D. 12/24/2018 9:23 PM
--- NOTE | 2018-12-24 21:26 | Ultrasound Report ---
RENAL ULTRASOUND HISTORY: Acute kidney injury. COMPARISON: Renal ultrasound 09/30/2008. FINDINGS: Right kidney: 11.5 cm. A 1.4 cm upper pole cyst. No hydronephrosis. Focal scarring at the mid pole, u nchanged. Left kidney: 11.5 cm. A 1.4 cm mid pole cyst. No hydronephrosis. Normal corticomedullary differentiat ion and cortical thickness. Bladder: Bladder wall trabeculation. The bilateral ureteral jets were identified. IMPRESSION: Small bilateral renal cysts. No hydronephrosis. Electronically signed by: Bharath Zarate M.D. 12/24/2018 9:24 PM
--- NOTE | 2018-12-24 22:49 | History & Physical Report ---
Date of Service December 24, 2018 Assessment & Plan (1) Pancreatic mass: Patient with vague symptoms of fatigue, bloating as well as significant weight loss over the last 3 months. US of the gall bladder revealed a large 6.7cm hypoechoic mass either within or superior to the pancreas as well as multiple hepatic masses concerning for metastatic disease. Concern for malignant process of the pancreas. Patient is aware of the findings. -Admit to medical floor -Check CA 19-9 with AM labs -Check MRI abdomen -Repeat LFTs in AM -Further consultation pending results of above studies Present on Admission?: Yes (2) Acute kidney injury: Patient with elevated BUN of 36, Cr of 2.21. Electrolytes WNL. He is urinating without difficulty -Check urine Na and urea -Monitor I/Os -NSS at 125mL/hr x 2 liters -Repeat chemistry panel in the AM Present on Admission?: Yes (3) Hyperglycemia: Blood sugar elevated on arrival. Most likely secondary to underlying pancreatic disease -Lantus 5u BID -ISS -Hold Metformin while inpatient -Continue to monitor Present on Admission?: Yes (4) Hyponatremia: In=108, previously normal. No neurological symptoms or seizure. Most likely secondary to underlying ?malignancy -Check urine and serum osmolality -Check random urine Na -NSS as above for treatment of LAYNE. If this is malignancy related SIADH patient may need free water restriction -Repeat chemistry panel in AM Present on Admission?: Yes (5) Hypercholesterolemia: Chronic. Stable -Hold fenofibrate Present on Admission?: Yes (6) Hypertension: Chronic. Blood pressure mildly elevated at 149/80 -Hold HCTZ in setting of hyponatremia -Continue Metoprolol F/E/N - NSS at 125mL/hr x 2 liters, monitor electrolytes and correct as needed, management of Na as above, CC diet as tolerated Ppx - Continue Omeprazole, Lovenox for DVT ppx Code - Full Dispo - Admit to medical floor Present on Admission?: Yes History of Present Illness Chief Complaint: abnormal labs Primary Care Provider: Jefferson Edwards MD Mr. Lowery is a pleasant 73yo C male with history of ISIDRO, HTN, GERD, HLP and newly diagnosed DM. He was seen in the outpatient clinic with complaint of persistent fatigue, abdominal bloating and upper abdominal discomfort. He report waking up 5-7 times per night due to strange dreams, need to use the restroom or leg cramps. Patient had blood work sent which revealed Na of 130, Cl of 94, BUN of 29, Cr of 2.12 Glu of 603 as well as abnormal liver tudies - ALT=99, WD=584, Tbili=1.6 . Patient was notified by provider and instructed to come to the ER for further workup. Additionally he reports 25# weight loss over the last 3 months. He has been changing his diet in attempt to control blood sugars. Blood sugars at home are fairly well controlled, typically in the mid-100's, have been steadily increasing over the last few weeks. ER Course: NSS Allergies Allergy/AdvReac Type Severity Reaction Status Date / Time BRADY Inhibitors Allergy Mild PT STATES Verified 12/24/18 20:18 DOESNT WORK Penicillins Allergy Mild FAMILY HX Verified 12/24/18 20:18 carbamazepine Allergy Rash Verified 12/24/18 20:18 Milk Containing Products AdvReac Unknown GAS Verified 12/24/18 20:18 gluten AdvReac SENSITIVITY-GI Verified 12/24/18 20:18 UPSET Home Medications Home Medications Medication Instructions Recorded Confirmed Type Lidocaine Pain Relief 1 patch TOPICAL BID PRN 12/25/17 12/24/18 History Probiotic 3,000 mmu cells PO QAM 12/25/17 12/24/18 History Restasis 1 drp OPHTHALMIC (EYE) TID 12/25/17 12/24/18 History aspirin 81 mg PO QPM 12/25/17 12/24/18 History celecoxib [Celebrex] 200 mg PO QAM 12/25/17 12/24/18 History fenofibrate 160 mg PO QPM 12/25/17 12/24/18 History fluticasone propionate [Flonase 2 spray INTRANASAL DAILY PRN 12/25/17 12/24/18 History Allergy Relief] lidocaine 1 applic TOPICAL TID PRN 12/25/17 12/24/18 History metoprolol succinate 100 mg PO QAM 12/25/17 12/24/18 History omeprazole 20 mg PO QAM 12/25/17 12/24/18 History sildenafil [Viagra] 100 mg PO DAILY PRN 12/25/17 12/24/18 History metformin 500 mg PO QPM 08/20/18 12/24/18 History Nutra Veiw 1 tab PO DAILY 12/24/18 12/24/18 History fluorometholone [FML Liquifilm] 1 drp OPHTHALMIC (EYE) BID 12/24/18 12/24/18 History hydrochlorothiazide 12.5 mg PO DAILY 12/24/18 12/24/18 History Past Med/Surg History Medical History BPH (benign prostatic hyperplasia) Cancer SKIN CA - REMOVED Chronic back pain LOWER BACK Diabetes mellitus, type 2 RECENT START MEDS GERD (gastroesophageal reflux disease) Hyperlipidemia Hypertension Osteoarthritis Sleep apnea CPAP Spinal stenosis Tremor HAND-HAD TESTING YEARS AGO-NO STROKE Surgical History H/O arthroscopy of knee BILAT. KNEES-MULTIPLE SURGERIES H/O elbow surgery History of appendectomy History of cataract surgery History of partial nephrectomy RT - BENIGN CYST History of surgery REMOVAL OF BONE SPURS - C5-C6 History of total knee replacement RT Nausea and vomiting after administration of anesthetic agent ON OCC S/P rotator cuff repair LEFT Family History Sister Family history of reaction to anesthesia Breast cancer Sister Family history of diabetes mellitus Lung cancer Sister Family history of diabetes mellitus Mother Family history of diabetes mellitus Breast cancer Father Colorectal cancer Social History Preferred Language: British Communication Ability: Effective Satellite Tv Technician Required: No Beliefs That Will Affect Care: None Current Living Situation: Spouse Feels Safe at Home: Yes Smoking Status: Former smoker Cigarettes Per Day: quit 25 years ago ; Second Hand Exposure: No ; Hx Alcohol Use: Yes Alcohol type: other Hx Substance Use: No Review of Systems Review of Systems: All systems reviewed & are unremarkable except as noted in HPI & below Patient complaining of upper abdominal fullness, heartburn Patient complaining of cramping in hands and legs Poor sleep Weight loss Physical Exam Physical Exam: General: patient resting comfortably, NAD, non-toxic in appearance, AA&O x 4 Skin: warm, dry, intact, facial telangiectasias, no rashes or lesions HEENT: NC/AT, PERRL, EOMI, anicteric sclera, conjunctiva without injection, external ear normal to inspection and nontender, nares patent, moist mucus membranes, dentition intact - lower implants and upper dentures, no oropharyngeal lesions, neck supple, trachea midline, no LAD, no thyromegaly, no JVD Heart: +S1/S2, regular, no m/r/g Lungs: equal air entry bilaterally, no rales/rhonchi/wheezes Abd: +BS, soft, tender in RUQ with no rebound/guarding/peritoneal signs, tender in epigastric area, ND, bulging flank on right side post-nephrectomy, soft Ext: warm, 2+ pulses in UE/LE bilaterally, no clubbing/cyanosis or edema Neuro: nonfocal, patient AA&O x 4, speech intact, no facial droop, moving all extremities on command with equal strength 5/5 Results & Data Vital Signs (Past 12 Hours) Vital Signs Temp Pulse Pulse Resp BP BP Pulse Ox 12/24/18 21:25 84 21 149/80 H 99 12/24/18 20:30 84 16 151/94 H 98 12/24/18 19:20 86 16 164/84 H 97 12/24/18 18:09 36.6 C 93 H 20 121/79 97 Laboratory Results Lab Results 12/24/18 12/24/18 12/24/18 Range/Units 18:16 19:19 19:25 WBC 9.91 (4.8-10.8) K/uL RBC 4.14 L (4.7-6.1) M/uL Hgb 13.9 L (14.0-18.0) g/dL Hct 40.1 L (42-52) % MCV 96.9 (80-100) fL MCH 33.6 (25-34) pg MCHC 34.7 (32-36) g/dL RDW Std Deviation 43.9 (36.4-46.3) fL RDW Coeff of Darrell 12.4 (11.5-14.5) % Plt Count 204 (130-400) K/uL MPV 12.5 H (7.4-10.4) fL Immature Gran % (Auto) 0.4 % Neut % (Auto) 76.1 % Lymph % (Auto) 14.5 % [place] % (Auto) 7.6 % Eos % (Auto) 1.2 % Baso % (Auto) 0.2 % Immature Gran # (Auto) 0.04 H (0.00-0.02) K/uL Neut # (Auto) 7.54 H (1.4-6.5) K/uL Lymph # (Auto) 1.44 (1.2-3.4) K/uL [place] # (Auto) 0.75 H (0.11-0.59) K/uL Eos # (Auto) 0.12 (0-0.5) K/uL Baso # (Auto) 0.02 (0-0.2) K/uL PT (9.0-12.0) Seconds INR (0.9-1.1) APTT (21.0-31.0) Seconds PTT Ratio Sodium (136-145) mmol/L Potassium (3.5-5.1) mmol/L Chloride (98-107) mmol/L Carbon Dioxide (21-32) mmol/L Anion Gap (3-11) BUN (7-18) mg/dl Creatinine (0.6-1.4) mg/dl Est Cr Clr Drug Dosing ml/min Est GFR ( Amer) Est GFR (Non-Af Amer) BUN/Creatinine Ratio (10-20) Glucose (70-99) mg/dl POC Glucose 564 H* 556 H* (70-99) Calcium (8.5-10.1) mg/dl Total Bilirubin (0.2-1) mg/dl Direct Bilirubin (0-0.2) mg/dl AST (15-37) U/L ALT (12-78) U/L Alkaline Phosphatase (45-117) U/L Troponin I (0-0.045) ng/ml Total Protein (6.4-8.2) gm/dl Albumin (3.4-5.0) gm/dl Lipase (73-393) U/L Beta-Hydroxybutyric Acd (0.2-2.81) mg/dl 12/24/18 12/24/18 12/24/18 Range/Units 19:25 19:25 20:29 WBC (4.8-10.8) K/uL RBC (4.7-6.1) M/uL Hgb (14.0-18.0) g/dL Hct (42-52) % MCV (80-100) fL MCH (25-34) pg MCHC (32-36) g/dL RDW Std Deviation (36.4-46.3) fL RDW Coeff of Darrell (11.5-14.5) % Plt Count (130-400) K/uL MPV (7.4-10.4) fL Immature Gran % (Auto) % Neut % (Auto) % Lymph % (Auto) % [place] % (Auto) % Eos % (Auto) % Baso % (Auto) % Immature Gran # (Auto) (0.00-0.02) K/uL Neut # (Auto) (1.4-6.5) K/uL Lymph # (Auto) (1.2-3.4) K/uL [place] # (Auto) (0.11-0.59) K/uL Eos # (Auto) (0-0.5) K/uL Baso # (Auto) (0-0.2) K/uL PT 10.7 (9.0-12.0) Seconds INR 1.0 (0.9-1.1) APTT 24.5 (21.0-31.0) Seconds PTT Ratio 0.9 Sodium 128 L (136-145) mmol/L Potassium 4.4 (3.5-5.1) mmol/L Chloride 95 L (98-107) mmol/L Carbon Dioxide 24 (21-32) mmol/L Anion Gap 9.0 (3-11) BUN 36 H (7-18) mg/dl Creatinine 2.21 H (0.6-1.4) mg/dl Est Cr Clr Drug Dosing 30.3 ml/min Est GFR ( Amer) 33.3 Est GFR (Non-Af Amer) 28.7 BUN/Creatinine Ratio 16.5 (10-20) Glucose 532 H* (70-99) mg/dl POC Glucose 443 H* (70-99) Calcium 9.8 (8.5-10.1) mg/dl Total Bilirubin 1.3 H (0.2-1) mg/dl Direct Bilirubin 0.9 H (0-0.2) mg/dl AST 58 H (15-37) U/L ALT 102 H (12-78) U/L Alkaline Phosphatase 264 H (45-117) U/L Troponin I < 0.015 (0-0.045) ng/ml Total Protein 7.5 (6.4-8.2) gm/dl Albumin 3.6 (3.4-5.0) gm/dl Lipase 218 (73-393) U/L Beta-Hydroxybutyric Acd 1.51 (0.2-2.81) mg/dl Diagnostic Findings RENAL ULTRASOUND HISTORY: Acute kidney injury. COMPARISON: Renal ultrasound 09/30/2008. FINDINGS: Right kidney: 11.5 cm. A 1.4 cm upper pole cyst. No hydronephrosis. Focal scarring at the mid pole, unchanged. Left kidney: 11.5 cm. A 1.4 cm mid pole cyst. No hydronephrosis. Normal corticomedullary differentiation and cortical thickness. Bladder: Bladder wall trabeculation. The bilateral ureteral jets were identified. IMPRESSION: Small bilateral renal cysts. No hydronephrosis. Electronically signed by: Bharath Zarate M.D. 12/24/2018 9:24 PM Dictated: 12/24/182122 Transcribed: 12/24/182122 ABDOMINAL ULTRASOUND, RIGHT UPPER QUADRANT HISTORY: Right upper quadrant pain.. COMPARISON: Abdominal CT 10/30/2008. FINDINGS: Pancreas: There is a 6.7 cm hypoechoic mass superior to and possibly involving the pancreas. This could Liver: Multiple hepatic masses with the largest measuring 7.0 cm. Gallbladder: No gallbladder wall thickening. No gallstones. CBD: 4 mm. Right kidney: No hydronephrosis. IMPRESSION: A 6.7 cm hypoechoic mass either within or superior to the pancreas. There are also multiple hepatic masses concerning for metastatic disease. A follow-up abdominal CT or MRI is recommended for further evaluation. Electronically signed by: Bharath Zarate M.D. 12/24/2018 9:23 PM Dictated: 12/24/[id number] Transcribed: 12/24/182119 XR chest 1V portable HISTORY: 73 years-old Male Chest Pain acute atypical chest pain COMPARISON: Chest radiograph 12/28/2009 TECHNIQUE: Portable AP view of the chest FINDINGS: Cardiomediastinal and hilar silhouettes are unchanged. Calcified plaque of the thoracic aortic arch. Interstitial coarsening of the lung bases suggest atelectasis/scarring. No pneumothorax, pleural effusion or overt pulmonary edema. Bones of the chest appear grossly intact. IMPRESSION: No acute process. The above report was generated using voice recognition software. It may contain grammatical, syntax or spelling errors. Electronically signed by: Lewis Kennedy M.D. 12/24/2018 7:53 PM Dictated: 12/24/181951 Transcribed: 12/24/181951 Code Status & VTE Plan Code Status FULL VTE Prophylaxis Plan VTE Prophylaxis will be ordered: Yes PG Care Time/CCT Total # of Minutes Spent Total Time Spent with Patient: Total time spent is greater than 50% in coordination of care (as documented) at patient's floor/unit and/or counseling patient: (1) Hypertension Hypertension type: essential hypertension Qualified Code(s): I10 - Essential (primary) hypertension
--- NOTE | 2018-12-24 22:49 | Emergency Department Note ---
Entered by Oneil Tolentino acting as a scribe for Aman De Jesus History of Present Illness General Chief complaint: Hyperglycemia Stated complaint: HIGH SUGAR, SENT BY Time Seen by Provider: 12/24/18 19:19 Source: patient and family Limitations: no limitations History of Present Illness Provider complaint: Hyperglycemia Onset (ago): day(s) (today) Radiation: non-radiation Maximum Pain Intensity: 6 Current Pain Intensity: 6 Relieved By: + none Exacerbated By: + none Associated symptoms: + weakness; no chest pain and no shortness of breath Treatments prior to arrival: none The patient is a 73 year old male who presents to the ED with complaints of hyperglycemia. Per the patient, he was diagnosed with diabetes a few months ago. He states his blood sugar was high today. The patient is on Metformin. He has been eating OK, but drinking a lot of iced tea. The patient denies chest pain or difficulty breathing. The patient rates his pain as a 6 out of 10 in severity. Patient's is at bedside states he saw his PCP today who instructed him to come to the emergency department due to his blood work showing elevated liver enzymes and elevated glucose. Home Medications Home Medications Medication Instructions Recorded Confirmed Type Lidocaine Pain Relief 1 patch TOPICAL BID PRN 12/25/17 12/24/18 History Probiotic 3,000 mmu cells PO QAM 12/25/17 12/24/18 History Restasis 1 drp OPHTHALMIC (EYE) TID 12/25/17 12/24/18 History aspirin 81 mg PO QPM 12/25/17 12/24/18 History celecoxib [Celebrex] 200 mg PO QAM 12/25/17 12/24/18 History fenofibrate 160 mg PO QPM 12/25/17 12/24/18 History fluticasone propionate [Flonase 2 spray INTRANASAL DAILY PRN 12/25/17 12/24/18 History Allergy Relief] lidocaine 1 applic TOPICAL TID PRN 12/25/17 12/24/18 History metoprolol succinate 100 mg PO QAM 12/25/17 12/24/18 History omeprazole 20 mg PO QAM 12/25/17 12/24/18 History sildenafil [Viagra] 100 mg PO DAILY PRN 12/25/17 12/24/18 History metformin 500 mg PO QPM 05/21/19 09/24/19 History Nutra Veiw 1 tab PO DAILY 12/24/18 12/24/18 History fluorometholone [FML Liquifilm] 1 drp OPHTHALMIC (EYE) BID 12/24/18 12/24/18 History hydrochlorothiazide 12.5 mg PO DAILY 12/24/18 12/24/18 History Allergies Allergy/AdvReac Type Severity Reaction Status Date / Time BRADY Inhibitors Allergy Mild PT STATES Verified 12/24/18 20:18 DOESNT WORK Penicillins Allergy Mild FAMILY HX Verified 12/24/18 20:18 carbamazepine Allergy Rash Verified 12/24/18 20:18 Milk Containing Products AdvReac Unknown GAS Verified 12/24/18 20:18 gluten AdvReac SENSITIVITY-GI Verified 12/24/18 20:18 UPSET Past Med/Surg History Medical History BPH (benign prostatic hyperplasia) Cancer SKIN CA - REMOVED Chronic back pain LOWER BACK Diabetes mellitus, type 2 RECENT START MEDS GERD (gastroesophageal reflux disease) Hyperlipidemia Hypertension Osteoarthritis Sleep apnea CPAP Spinal stenosis Tremor HAND-HAD TESTING YEARS AGO-NO STROKE Surgical History H/O arthroscopy of knee BILAT. KNEES-MULTIPLE SURGERIES H/O elbow surgery History of appendectomy History of cataract surgery History of partial nephrectomy RT - BENIGN CYST History of surgery REMOVAL OF BONE SPURS - C5-C6 History of total knee replacement RT Nausea and vomiting after administration of anesthetic agent ON OCC S/P rotator cuff repair LEFT Family History Sister Family history of reaction to anesthesia Breast cancer Sister Family history of diabetes mellitus Lung cancer Sister Family history of diabetes mellitus Mother Family history of diabetes mellitus Breast cancer Father Colorectal cancer Social History Preferred Language: [place] Communication Ability: Effective Guide Escort Required: No Beliefs That Will Affect Care: None Current Living Situation: Spouse Feels Safe at Home: Yes Smoking Status: Former smoker Cigarettes Per Day: quit 25 years ago ; Second Hand Exposure: No ; Hx Alcohol Use: Yes Alcohol type: other Hx Substance Use: No Review of Systems See HPI for pertinent positives & negatives. and A total of 10 systems reviewed and were otherwise negative Physical Exam Vital Signs Vital Signs - 24 hr 12/24/18 18:09 12/24/18 19:20 12/24/18 19:32 Temperature 36.6 C Temperature Source Oral Sepsis Recent Fever Within 48 Hours No Sepsis New/Unexplained Change in Mental Status No Sepsis Action Taken by Nursing No Action Required Pulse Rate 93 H Pulse Rate [Right Finger] 86 Respiratory Rate 20 16 Respiratory Effort / Characteristics Non-Labored Spontaneous Blood Pressure 121/79 Blood Pressure [Right Arm] 164/84 H Blood Pressure Mean 93 Blood Pressure Mean [Right Arm] 110 Blood Pressure Position Sitting Pulse Oximetry 97 97 Oxygen Delivery Method Room Air Room Air Room Air 12/24/18 20:30 12/24/18 21:25 12/24/18 22:21 Temperature Temperature Source Sepsis Recent Fever Within 48 Hours Sepsis New/Unexplained Change in Mental Status Sepsis Action Taken by Nursing Pulse Rate Pulse Rate [Right Finger] 84 84 84 Respiratory Rate 16 21 24 Respiratory Effort / Characteristics Blood Pressure Blood Pressure [Right Arm] 151/94 H 149/80 H 177/100 H Blood Pressure Mean Blood Pressure Mean [Right Arm] 113 103 125 Blood Pressure Position Pulse Oximetry 98 99 98 Oxygen Delivery Method Room Air Room Air Room Air Physical Exam GENERAL: He is oriented to person, place, and time. He appears well-developed and well-nourished. He does not appear distressed. ____ HENT: Exam performed. - Head: Normocephalic and atraumatic. - Right Ear: External ear normal. No mastoid tenderness. - Left Ear: External ear normal. No mastoid tenderness. - Mouth/Throat: The oropharynx is clear and moist. No trismus in the jaw. No dental abscesses or uvula swelling. No oropharyngeal exudate or tonsillar abscesses. ____ EYES: Conjunctivae and EOM are normal. Pupils are equal, round, and reactive to light. Right eye exhibits no discharge. Left eye exhibits no discharge. No scleral icterus. ____ NECK: Normal range of motion. Neck supple. No JVD present. No spinous process tenderness present. No carotid bruit present. No rigidity. No tracheal deviation and normal range of motion present. No Brudzinski's sign and no Kernig's sign noted. ____ CV: Normal rate, regular rhythm, normal heart sounds and intact distal pulses. There is no peripheral edema. Palpable radial pulses bue. ____ PULM/CHEST: Effort normal and breath sounds normal. No respiratory distress. No stridor. He has no wheezes. He has no rales. - Chest Wall: He exhibits no tenderness. ____ ABD: The abdomen is soft. Bowel sounds are normal. Large right-sided mass which patient states is chronic. There is no tenderness. There is no rebound, no guarding, no Shaw's sign and no tenderness at McBurney's point. Rovsig negative MUSC/SKEL: Normal range of motion. There is no peripheral edema, tenderness or deformity. LYMPH: No cervical adenopathy. ____ NEURO: He is alert and oriented to person, place, and time. He has normal strength. No cranial nerve deficit or sensory deficit. Coordination and gait normal. GCS eye subscore is 4. GCS verbal subscore is 5. GCS motor subscore is 6. cerbellar tests wnl. ____ SKIN: Skin is warm and dry. He is not diaphoretic. ____ PSYCH: He has a normal mood and affect. His behavior is normal. Judgment and thought content normal. ____ Course 1920: Medical records reviewed. The patient was seen in room A2, a physical examination was performed. 1999: Dr. Baptiste was able to help obtain the patients previous lab results. His ALT 99, bilirubin 1.6, AST 50, Hepatitis C non-reactive. He had A1C 6 weeks ago that was 6.7, and blood work done which showed sodium as 130, BUN 29, creatinine 2.12, glucose 603, and WBC 6.9. 3: Vital signs stable, labs showed sodium 128, creatinine of 2.21 which is up from his baseline of 1.35, glucose 532, bilirubin is 1.3, AST 58, ALT 102, alkphos 264. Given his acute kidney injury, an US was performed which showed 6.7 cm hypoechoic mass in the pancreas with multiple concerning for malignancy and metastatic. Patient will be admitted to the hospital, no CAT will be performed at this time. Dr. Brooke Cises, [facility] Hospitalist, will accept the patient for further evaluation. Administered Medications Discontinued Medications Sodium Chloride (Nss 1000ml) 1,000 mls @ 999 mls/hr IV .Q1H1M [place] Stop: 12/24/18 20:30 Last Infusion: 12/24/18 20:31 Dose: 0 mls/hr Documented by: [id number] Admin: 12/24/18 19:28 Dose: 999 mls/hr Documented by: [id number] Medical Decision Making Medical Records Attestation: I reviewed the patient's medical records. Home Medications Current Medication List: was personally reviewed by me Laboratory Data Attestation: I reviewed the patient's lab results. Result diagrams: 12/24/18 19:25 12/24/18 19:25 Lab Results 12/24/18 12/24/18 12/24/18 Range/Units 18:16 19:19 19:25 WBC 9.91 (4.8-10.8) K/uL RBC 4.14 L (4.7-6.1) M/uL Hgb 13.9 L (14.0-18.0) g/dL Hct 40.1 L (42-52) % MCV 96.9 (80-100) fL MCH 33.6 (25-34) pg MCHC 34.7 (32-36) g/dL RDW Std Deviation 43.9 (36.4-46.3) fL RDW Coeff of Darrell 12.4 (11.5-14.5) % Plt Count 204 (130-400) K/uL MPV 12.5 H (7.4-10.4) fL Immature Gran % (Auto) 0.4 % Neut % (Auto) 76.1 % Lymph % (Auto) 14.5 % [place] % (Auto) 7.6 % Eos % (Auto) 1.2 % Baso % (Auto) 0.2 % Immature Gran # (Auto) 0.04 H (0.00-0.02) K/uL Neut # (Auto) 7.54 H (1.4-6.5) K/uL Lymph # (Auto) 1.44 (1.2-3.4) K/uL [place] # (Auto) 0.75 H (0.11-0.59) K/uL Eos # (Auto) 0.12 (0-0.5) K/uL Baso # (Auto) 0.02 (0-0.2) K/uL PT (9.0-12.0) Seconds INR (0.9-1.1) APTT (21.0-31.0) Seconds PTT Ratio Sodium (136-145) mmol/L Potassium (3.5-5.1) mmol/L Chloride (98-107) mmol/L Carbon Dioxide (21-32) mmol/L Anion Gap (3-11) BUN (7-18) mg/dl Creatinine (0.6-1.4) mg/dl Est Cr Clr Drug Dosing ml/min Est GFR ( Amer) Est GFR (Non-Af Amer) BUN/Creatinine Ratio (10-20) Glucose (70-99) mg/dl POC Glucose 564 H* 556 H* (70-99) Calcium (8.5-10.1) mg/dl Total Bilirubin (0.2-1) mg/dl Direct Bilirubin (0-0.2) mg/dl AST (15-37) U/L ALT (12-78) U/L Alkaline Phosphatase (45-117) U/L Troponin I (0-0.045) ng/ml Total Protein (6.4-8.2) gm/dl Albumin (3.4-5.0) gm/dl Lipase (73-393) U/L Beta-Hydroxybutyric Acd (0.2-2.81) mg/dl 12/24/18 12/24/18 12/24/18 Range/Units 19:25 19:25 20:29 WBC (4.8-10.8) K/uL RBC (4.7-6.1) M/uL Hgb (14.0-18.0) g/dL Hct (42-52) % MCV (80-100) fL MCH (25-34) pg MCHC (32-36) g/dL RDW Std Deviation (36.4-46.3) fL RDW Coeff of Darrell (11.5-14.5) % Plt Count (130-400) K/uL MPV (7.4-10.4) fL Immature Gran % (Auto) % Neut % (Auto) % Lymph % (Auto) % [place] % (Auto) % Eos % (Auto) % Baso % (Auto) % Immature Gran # (Auto) (0.00-0.02) K/uL Neut # (Auto) (1.4-6.5) K/uL Lymph # (Auto) (1.2-3.4) K/uL [place] # (Auto) (0.11-0.59) K/uL Eos # (Auto) (0-0.5) K/uL Baso # (Auto) (0-0.2) K/uL PT 10.7 (9.0-12.0) Seconds INR 1.0 (0.9-1.1) APTT 24.5 (21.0-31.0) Seconds PTT Ratio 0.9 Sodium 128 L (136-145) mmol/L Potassium 4.4 (3.5-5.1) mmol/L Chloride 95 L (98-107) mmol/L Carbon Dioxide 24 (21-32) mmol/L Anion Gap 9.0 (3-11) BUN 36 H (7-18) mg/dl Creatinine 2.21 H (0.6-1.4) mg/dl Est Cr Clr Drug Dosing 30.3 ml/min Est GFR ( Amer) 33.3 Est GFR (Non-Af Amer) 28.7 BUN/Creatinine Ratio 16.5 (10-20) Glucose 532 H* (70-99) mg/dl POC Glucose 443 H* (70-99) Calcium 9.8 (8.5-10.1) mg/dl Total Bilirubin 1.3 H (0.2-1) mg/dl Direct Bilirubin 0.9 H (0-0.2) mg/dl AST 58 H (15-37) U/L ALT 102 H (12-78) U/L Alkaline Phosphatase 264 H (45-117) U/L Troponin I < 0.015 (0-0.045) ng/ml Total Protein 7.5 (6.4-8.2) gm/dl Albumin 3.6 (3.4-5.0) gm/dl Lipase 218 (73-393) U/L Beta-Hydroxybutyric Acd 1.51 (0.2-2.81) mg/dl Imaging Data Radiologist's Impression: Radiology results as stated below per my review and the radiologist's interpretation: XR chest 1V portable HISTORY: 73 years-old Male Chest Pain acute atypical chest pain COMPARISON: Chest radiograph 12/28/2009 TECHNIQUE: Portable AP view of the chest FINDINGS: Cardiomediastinal and hilar silhouettes are unchanged. Calcified plaque of the thoracic aortic arch. Interstitial coarsening of the lung bases suggest atelectasis/scarring. No pneumothorax, pleural effusion or overt pulmonary edema. Bones of the chest appear grossly intact. IMPRESSION: No acute process. The above report was generated using voice recognition software. It may contain grammatical, syntax or spelling errors. Electronically signed by: Lewis Kennedy M.D. 12/24/2018 7:53 PM RENAL ULTRASOUND HISTORY: Acute kidney injury. COMPARISON: Renal ultrasound 09/30/2008. FINDINGS: Right kidney: 11.5 cm. A 1.4 cm upper pole cyst. No hydronephrosis. Focal scarring at the mid pole, unchanged. Left kidney: 11.5 cm. A 1.4 cm mid pole cyst. No hydronephrosis. Normal corticomedullary differentiation and cortical thickness. Bladder: Bladder wall trabeculation. The bilateral ureteral jets were identified. IMPRESSION: Small bilateral renal cysts. No hydronephrosis. Electronically signed by: Bharath Zarate M.D. 12/24/2018 9:24 PM ABDOMINAL ULTRASOUND, RIGHT UPPER QUADRANT HISTORY: Right upper quadrant pain.. COMPARISON: Abdominal CT 10/30/2008. FINDINGS: Pancreas: There is a 6.7 cm hypoechoic mass superior to and possibly involving the pancreas. This could Liver: Multiple hepatic masses with the largest measuring 7.0 cm. Gallbladder: No gallbladder wall thickening. No gallstones. CBD: 4 mm. Right kidney: No hydronephrosis. IMPRESSION: A 6.7 cm hypoechoic mass either within or superior to the pancreas. There are also multiple hepatic masses concerning for metastatic disease. A follow-up abdominal CT or MRI is recommended for further evaluation. Electronically signed by: Bharath Zarate M.D. 12/24/2018 9:23 PM ECG Data Attestation: I personally reviewed and interpreted this ECG as follows: Indication: other (hyperglycemia) Rate (beats per minute): 83 Rhythm: normal sinus Findings: + other (WI, QRS, QTC within normal limits); no ST depression and no ST elevation Blood Pressure Blood Pressure Findings: Elevated blood pressure Blood Pressure Disposition: further management by hospitalist RANDEE Niño 1920: Medical records reviewed. The patient was seen in room A2, a physical exa mination was performed. 1999: Dr. Baptiste was able to help obtain the patients previous lab results. His ALT 99, bilirubin 1.6, AST 50, Hepatitis C non-reactive. He had A1C 6 weeks ago that was 6.7, and blood work done which showed sodium as 130, BUN 29, creatinine 2.12, glucose 603, and WBC 6.9. 2223: Vital signs stable, labs showed sodium 128, creatinine of 2.21 which is up from his baseline of 1.35, glucose 532, bilirubin is 1.3, AST 58, ALT 102, alkphos 264. Given his acute kidney injury, an US was performed which showed 6.7 cm hypoechoic mass in the pancreas with multiple concerning for malignancy and metastatic. Patient will be admitted to the hospital, no CAT will be performed at this time. Dr. Brooke Cisse, [facility] Hospitalist, will accept the patient for further evaluation. Impression & Plan Pancreatic mass, Acute kidney injury, Hyperglycemia, Hyponatremia, Transaminitis Discharge Plan Visit Data Chief Complaint: Hyperglycemia Stated Complaint: HIGH SUGAR, SENT BY DR MOHAMUD Provider: Aman De Jesus Discharge Problem: Pancreatic mass, Acute kidney injury, Hyperglycemia, Hyponatremia, Transaminitis Patient Disposition: Being Evaluated by Hospitalist Forms Stand Alone Forms: My [facility] Prescriptions Prescriptions: No Action metformin 500 mg Tablet 500 mg PO QPM RF: 0 celecoxib [Celebrex] 200 mg Capsule 200 mg PO QAM RF: 0 lidocaine 5 % Cream 1 applic TOPICAL TID PRN (Reason: Pain) RF: 0 metoprolol succinate 100 mg Tablet Extended Release 24 Hr 100 mg PO QAM RF: 0 aspirin 81 mg Tablet,Delayed Release (Dr/Ec) 81 mg PO QPM RF: 0 sildenafil [Viagra] 100 mg Tablet 100 mg PO DAILY PRN (Reason: Erectile Dysfunction) RF: 0 fluticasone propionate [Flonase Allergy Relief] 50 mcg/actuation [place],Suspension 2 spray INTRANASAL DAILY PRN (Reason: Congestion) RF: 0 Restasis 0.05 % Dropperette 1 drp OPHTHALMIC (EYE) TID RF: 0 fenofibrate 160 mg Tablet 160 mg PO QPM RF: 0 omeprazole 20 mg Tablet,Delayed Release (Dr/Ec) 20 mg PO QAM RF: 0 Probiotic 3 billion cell Capsule 3,000 mmu cells PO QAM RF: 0 Lidocaine Pain Relief 4 % Adhesive Patch,Medicated 1 patch TOPICAL BID PRN (Reason: Pain) RF: 0 fluorometholone [FML Liquifilm] 0.1 % drops,suspension 1 drp ophthalmic (eye) BID RF: 0 hydrochlorothiazide 12.5 mg capsule 12.5 mg PO DAILY RF: 0 Nutra Veiw 1 tab PO DAILY RF: 0 Referrals Referrals: Jefferson Edwards MD [Primary Care Provider] - The scribe's documentation has been prepared under my direction and personally reviewed by me in its entirety. I confirm that the note above accurately reflects all work, treatment, procedures, and medical decision making performed by me.
[2018-12-24] MEDS ORDERED: LIDOCAINE HCL 5% OINT 30 GM TUBE TOP PRN (23:16)
[2018-12-24] MEDS ORDERED: ONDANSETRON INJ 2 MG/ML 2 ML VIAL IV PRN (23:16)
[2018-12-24] MEDS ORDERED: GLUCOSE 40% GEL 15 GM TUBE PO PRN (23:16)
[2018-12-24] MEDS ORDERED: CARBOHYDRATES FOR HYPOGLYCEMIA PO PRN (23:16)
[2018-12-24] MEDS ORDERED: ACETAMINOPHEN 325 MG TAB PO PRN (23:16)
[2018-12-24] MEDS ORDERED: GLUCOSE 10 TABS/TUBE PO PRN (23:16)
[2018-12-24] MEDS ORDERED: GLUCAGON FOR INJ 1 MG VIAL SQ PRN (23:16)
[2018-12-24] MEDS ORDERED: FLUTICASONE PROPIONATE NA SPR 16 GM BTL PRN (23:16)
[2018-12-24] MEDS ORDERED: DEXTROSE 50% 50 ML SYRINGE IV PRN (23:16)
[2018-12-24] MEDS ORDERED: ENOXAPARIN INJ 40 MG/0.4 ML SYR SQ SCH (23:30)
[2018-12-24] MEDS: SODIUM CHLORIDE 0.9% 1000ML 1,000 ML IV SCH (23:40)
[2018-12-24 23:49] LABS: Magnesium 2.5 mg/dl (1.8-2.4)
[2018-12-25] MEDS: INSULIN GLARGINE SOLOSTAR 100 UNITS/ML 3 ML PEN SC SCH ×2 (00:19→08:15)
[2018-12-25] MEDS: INSULIN ASPART 100 UNITS/ML 3 ML PEN SC SCH ×3 (00:20→12:33)
[2018-12-25 00:45] LABS: Appearance Urine Clear (Clear); Bilirubin Urine Negative (Negative); Blood Urine Negative (Negative); Color Urine Yellow; Glucose Urine UA 3+ (Negative); Ketones Urine Negative (Negative); Leukocyte Esterase Urine Negative (Negative); Nitrite Urine Negative (Negative); Protein Urine Negative (Negative); Specific Gravity Urine 1.033 (1.000-1.030); Urobilinogen Urine Negative (Negative)
[2018-12-25] MEDS ORDERED: FAMOTIDINE 20MG/5ML IV PUSH IV STA (00:52)
[2018-12-25 01:15] LABS: Sodium Random Urine 25 mmol/L; Urea Nitrogen, Urine Random 287 mg/dl
[2018-12-25] MEDS ORDERED: FAMOTIDINE 20 MG in SYRINGE 3 ML IV ONE (01:15)
[2018-12-25] MEDS ORDERED: INFLUENZA VIRUS QUAD VACCINE 0.5 ML SYR IM ONE (05:00)
[2018-12-25] MEDS ORDERED: INFLUENZA ADMINISTRATION CHARGE ONE (05:00)
[2018-12-25] MEDS: SODIUM CHLORIDE 0.9% 1000ML 1,000 ML IV SCH (06:23)
[2018-12-25 06:26] LABS: Basophils # (auto) 0.01 K/uL (0-0.2); Basophils % (auto) 0.1 %; Eosinophils # (auto) 0.14 K/uL (0-0.5); Eosinophils % (auto) 1.8 %; Hematocrit (blood only) 37.4 % (42-52); Hemoglobin 12.9 g/dL (14.0-18.0); Immature Granulocytes # (auto) 0.02 K/uL (0.00-0.02); Immature Granulocytes % (auto) 0.3 %; Lymphocytes # (auto) 0.94 K/uL (1.2-3.4); Lymphocytes % (auto) 12.1 %; Mean Corpuscular Hemoglobin 33.4 pg (25-34); Mean Corpuscular Hgb Conc 34.5 g/dL (32-36); Mean Corpuscular Volume 96.9 fL (80-100); Mean Platelet Volume 12.6 fL (7.4-10.4); Monocytes # (auto) 0.68 K/uL (0.11-0.59); Monocytes % (auto) 8.8 %; Neutrophils # (auto) 5.98 K/uL (1.4-6.5); Neutrophils % (auto) 76.9 %; Platelet Count 162 K/uL (130-400); RDW Coefficient of Variation 12.5 % (11.5-14.5); RDW Standard Deviation 44.3 fL (36.4-46.3); Red Blood Count 3.86 M/uL (4.7-6.1); White Blood Count 7.77 K/uL (4.8-10.8)
[2018-12-25 06:56] LABS: BUN Creatinine Ratio 21.3 (10-20); Bilirubin Direct 0.7 mg/dl (0-0.2); Calcium 8.9 mg/dl (8.5-10.1); Creatinine Clr Calc Pharmacy 54.3 ml/min; Est GFR (African American) 67.6; Est GFR (Non-African American) 58.3
[2018-12-25 06:57] LABS: Bilirubin,Total 1.2 mg/dl (0.2-1); Total Protein 6.4 gm/dl (6.4-8.2)
[2018-12-25] MEDS ORDERED: RESTASIS~ORDER AWAITING ACTION SCH (08:00)
[2018-12-25] MEDS ORDERED: PANTOprazole 40 MG TAB PO SCH (09:00)
[2018-12-25] MEDS ORDERED: METOPROLOL SUCC 50MG EXT REL TAB PO SCH (09:00)
[2018-12-25] MEDS ORDERED: CeleBREX 200 MG CAP PO SCH (09:00)
[2018-12-25] MEDS ORDERED: GADOBUTROL 65ML VIAL IV PRN (09:41)
[2018-12-25] MEDS ORDERED: ARTIFICIAL TEARS OP PRN (11:58)
[2018-12-25] MEDS ORDERED: LIDOCAINE 5% 1 PATCH TD PRN (11:59)
[2018-12-25] MEDS ORDERED: D5W AND NSS 1,000 ML IV SCH (13:15)
--- NOTE | 2018-12-25 14:28 | Discharge Summary ---
Date of Service December 25, 2018 Admission HPI Per Admitting Provider Mr. Lowery is a pleasant 73yo C male with history of ISIDRO, HTN, GERD, HLP and newly diagnosed DM. He was seen in the outpatient clinic with complaint of persistent fatigue, abdominal bloating and upper abdominal discomfort. He report waking up 5-7 times per night due to strange dreams, need to use the restroom or leg cramps. Patient had blood work sent which revealed Na of 130, Cl of 94, BUN of 29, Cr of 2.12 Glu of 603 as well as abnormal liver tudies - ALT=99, AW=509, Tbili=1.6 . Patient was notified by provider and instructed to come to the ER for further workup. Additionally he reports 25# weight loss over the last 3 months. He has been changing his diet in attempt to control blood sugars. Blood sugars at home are fairly well controlled, typically in the mid-100's, have been steadily increasing over the last few weeks. ER Course: NSS Principal Diagnosis New onset pancreatic and liver mass LAYNE Discharge Exam Constitutional WD/WN, vitals as above Respiratory normal respiratory effort, lungs clear to auscultation Cardiovascular RRR, no murmur, no edema Gastrointestinal (Abdomen) normal bowel sounds, soft, nontender, no hepatosplenomegaly Skin no rashes, warm and dry Discharge Data Allergies Allergy/AdvReac Type Severity Reaction Status Date / Time BRADY Inhibitors Allergy Mild PT STATES Verified 12/24/18 20:18 DOESNT WORK Penicillins Allergy Mild FAMILY HX Verified 12/24/18 20:18 carbamazepine Allergy Rash Verified 12/24/18 20:18 Milk Containing Products AdvReac Unknown GAS Verified 12/24/18 20:18 gluten AdvReac SENSITIVITY-GI Verified 12/24/18 20:18 UPSET Consultations 12/24/18 21:41 ED Decision to Admit Stat 12/25/18 13:29 Consult Gastroenterology Routine Ordered Studies 12/24/18 20:21 US gallbladder Stat US renal/blad retro comp Stat 12/25/18 00:10 MR abdomen wo/w con Routine Hospital Course (1) Pancreatic mass: 73 y/o presented to ED with fatigue, bloating and hyperglycemia noted to have pancreatic and liver mass on ultrasound done in ED Pancreatic mass: Patient with vague symptoms of fatigue, bloating as well as significant weight loss over the last 3 months. US of the gall bladder revealed a large 6.7cm hypoechoic mass either within or superior to the pancreas as well as multiple hepatic masses concerning for metastatic disease. Concern for malignant process of the pancreas. -MRI done this am showing pancreatic lesion concerning of adenocarcinoma, encasing the left gastric, splenic vein and occluding the splenic artery. No CBC dilation. -CA 19-9 pending -Discussed case with GI - Dr. Li - recommends transfer to tertiary care for EUS. -[facility] accepted patient under service of Dr. Bay([facility]) and Dr. Cheek(GI) Acute kidney injury: Patient with elevated BUN of 36, Cr of 2.21. Electrolytes WNL. He is urinating without difficulty -Creatinine improved to 1.2 with hydration Hyperglycemia: Blood sugar elevated on arrival - 600. Most likely secondary to underlying pancreatic disease -Added Lantus 5u BID -ISS -Held Metformin while inpatient Hyponatremia: Gm=741 on admission, previously normal. No neurological symptoms or seizure. Most likely secondary to underlying ?malignancy -Urine and serum osm - 525/297 respectively. -Random urine Na 25 -Sodium this am 137 Hypercholesterolemia: Chronic. Stable -Held fenofibrate Hypertension: Chronic. -Held HCTZ in setting of hyponatremia -Continue Metoprolol F/E/N - Kept on NSS at 125mL/hr x 2 liters, Diabetic diet, electrolytes as above. Ppx - Continue Omeprazole, Lovenox for DVT ppx Code - Full Dispo - Transfer to [facility] (2) Acute kidney injury: (3) Hyperglycemia: (4) Hyponatremia: (5) Transaminitis: Total Time Total Time Spent Total Time Spent (In Minutes): 40 Discharge Plan Discharge Items Patient Disposition: Transfer Acute [facility] Reason For Visit: ?PANCREATIC CANCER Discharge Diagnosis: New onset pancreatic mass, hepatic lesion Layne DM Activity: Resume your previous activity Non-emergency contact: Primary Care Provider Call non-emergency contact if: you have any medication questions Follow-up/Referrals: Jefferson Edwards MD [Primary Care Provider] - Diet: Carb Consistent or DM2 Addtl Attending Provider Instructions: Please contact your family physician on discharge from [facility] Pending Studies at Discharge: Yes Stand-Alone Forms: My [facility] Skilled Items Patient informed of condition?: Yes DNR: No Discharge Level of Care: Other Communicable Disease: No Discharge Prognosis: Other Lines: Peripheral IV Urinary Catheter: No Medications and DC Order Prescriptions: Continued metformin 500 mg Tablet 500 mg PO QPM RF: 0 celecoxib [Celebrex] 200 mg Capsule 200 mg PO QAM RF: 0 lidocaine 5 % Cream 1 applic TOPICAL TID PRN (Reason: Pain) RF: 0 metoprolol succinate 100 mg Tablet Extended Release 24 Hr 100 mg PO QAM RF: 0 aspirin 81 mg Tablet,Delayed Release (Dr/Ec) 81 mg PO QPM RF: 0 sildenafil [Viagra] 100 mg Tablet 100 mg PO DAILY PRN (Reason: Erectile Dysfunction) RF: 0 fluticasone propionate [Flonase Allergy Relief] 50 mcg/actuation [place],Suspension 2 spray INTRANASAL DAILY PRN (Reason: Congestion) RF: 0 Restasis 0.05 % Dropperette 1 drp OPHTHALMIC (EYE) BID RF: 0 fenofibrate 160 mg Tablet 160 mg PO QPM RF: 0 omeprazole 20 mg Tablet,Delayed Release (Dr/Ec) 20 mg PO QAM RF: 0 Probiotic 3 billion cell Capsule 3,000 mmu cells PO QAM RF: 0 Lidocaine Pain Relief 4 % Adhesive Patch,Medicated 1 patch TOPICAL BID PRN (Reason: Pain) RF: 0 fluorometholone [FML Liquifilm] 0.1 % drops,suspension 1 drp ophthalmic (eye) BID RF: 0 hydrochlorothiazide 12.5 mg capsule 12.5 mg PO DAILY RF: 0 Nutra Veiw 1 tab PO DAILY RF: 0 Discharge Orders: Discharge Order (Routine); Ordered 12/25/18 Ordered By: Tabitha Stephens Admission Data Admit Date/Time: 12/24/18 22:19 Attending Provider: Tabitha Stephens Admit Provider: Brooke Cisse Primary Care Provider: Jefferson Edwards Other Providers: Brooke Cisse ; Salbador Riddle ; Aravind Li
[2018-12-25] MEDS ORDERED: ASPIRIN 81 MG ECTAB PO SCH (21:00)
--- NOTE | 2018-12-26 07:12 | Magnetic Resonance Report ---
MR abdomen wo/w con HISTORY: 73 years-old Male ?Pancreatic CA with liver mets? Subsequent treatment strategy. Pancreatic CA with possible hepatic metastasis. COMPARISON: Right upper quadrant abdominal ultrasound 12/24/2018 TECHNIQUE: Multiplanar multisequence MRI of the abdomen was obtained both with and without the use of 8 mL Gadavist. FINDINGS: Rewriter localizer images demonstrate no gross abnormality of the imaged pelvis. The study is mildly mot ion degraded. Portions of the patient's right lateral abdomen are excluded from the [id number]. Th e imaged inferior cardiac chambers appear unremarkable. Slightly increased signal of the right lung b ase may reflect some atelectasis or pneumonitis. There are several masses noted about the right and left hepatic lobes with largest mass or conglomera te masses noted about the right hepatic lobe measuring up to 6.2 x 5.5 x 6.6 cm. These lesions demons trate heterogeneously increased T2 signal with decreased T1 signal and heterogeneous progressive enha ncement. The appendix and portal veins appear to be patent. There is intrahepatic biliary ductal dila tion most pronounced within the right hepatic lobe. Mild nonspecific bilateral perinephric stranding. There are a few scattered T2 hyperintense lesions n oted about the bilateral kidneys measuring up to 1.2 cm suggestive of renal cysts. Mild cortical scar ring of the interpolar right kidney with findings suggestive of partial nephrectomy. Surgical clips w ithin this region are noted with susceptibility artifact. There is no hydronephrosis. No aortic aneur ysm. IVC is unremarkable. Adrenal glands, spleen and gallbladder appear unremarkable. Mild wall thick ening with partial distention of the gallbladder. Common bile duct is normal, 5 mm. Infiltrative mass of the pancreatic neck/body junction without significant associated enhancement measures approximate ly 3.5 x 4.8 cm partially encasing the left gastric and proximal splenic arteries. There is occlusion of the splenic vein. Portal and superior mesenteric veins appear patent. There is atrophy of the jaramillo creatic tail with proximal pancreatic ductal dilation. Mass extends superiorly adjacent to the lesser curvature of the proximal stomach. 10 mm enhancing peritoneal lesion is noted on image 65 with addit ional enhancing peritoneal lesions noted about the abdominal right lower quadrant. No definite bony m etastatic lesions. No ascites. IMPRESSION: 1. Infiltrative mass of the pancreatic neck/body junction measuring up to approximately 4.8 cm is sug gestive of pancreatic adenocarcinoma and partially encases the left gastric and proximal splenic smita jazmine with occlusion of the splenic vein. 2. Multiple hepatic metastases, largest of which involves the right hepatic lobe resulting in associa grey right hepatic lobe biliary ductal dilation. 3. Peritoneal carcinomatosis. 4. Additional incidental findings as above. The above report was generated using voice recognition software. It may contain grammatical, syntax o r spelling errors. Dictated: 12/25/2018 11:00 AM Transcribed: 12/25/2018 12:09 PM Radha [id number] [facility]_Rubio Electronically signed by: Lewis Kennedy M.D. 12/26/2018 7:11 AM
== END 2018-12-25 16:19 | disposition short-term general hospital (02) | DRG 436 ==
LOC: ED 17:34 → 4W 22:19 → SUATTDRO 22:19 → 4W 22:46

== ENCOUNTER 2019-01-24 18:19 | Inpatient (IN) ==
[2019-01-24] MEDS ORDERED: MoRPHine SULFATE 4 MG/ML 1 ML CARP\\VIAL IV STA ×2 (19:15→23:43)
[2019-01-24] MEDS ORDERED: ACETAMINOPHEN 1,000 MG/100 ML VIAL IV STA (19:15)
[2019-01-24 19:19] LABS: Basophils # (auto) 0.03 K/uL (0-0.2); Basophils % (auto) 0.4 %; Eosinophils # (auto) 0.21 K/uL (0-0.5); Eosinophils % (auto) 2.6 %; Hemoglobin 12.2 g/dL (14.0-18.0); Immature Granulocytes # (auto) 0.04 K/uL (0.00-0.02); Immature Granulocytes % (auto) 0.5 %; Mean Corpuscular Hemoglobin 33.1 pg (25-34); Mean Corpuscular Hgb Conc 34.9 g/dL (32-36); Mean Corpuscular Volume 94.9 fL (80-100); Mean Platelet Volume 11.8 fL (7.4-10.4); Monocytes % (auto) 7.4 %; Neutrophils # (auto) 6.37 K/uL (1.4-6.5); Neutrophils % (auto) 78.1 %; Platelet Count 240 K/uL (130-400); RDW Coefficient of Variation 13.5 % (11.5-14.5); RDW Standard Deviation 46.9 fL (36.4-46.3); Red Blood Count 3.69 M/uL (4.7-6.1); White Blood Count 8.15 K/uL (4.8-10.8)
[2019-01-24] MEDS ORDERED: ONDANSETRON INJ 2 MG/ML 2 ML VIAL IV STA (19:30)
[2019-01-24] MEDS ORDERED: FAMOTIDINE 20MG IV PUSH 20 MG/5 ML SYR IV STA (19:30)
[2019-01-24 20:10] LABS: Alanine Aminotransferase 130 U/L (12-78); Albumin Level 2.5 gm/dl (3.4-5.0); Alkaline Phosphatase 400 U/L (45-117); Aspartate Aminotransferase 109 U/L (15-37); Bilirubin,Total 23.9 mg/dl (0.2-1); Blood Urea Nitrogen 29 mg/dl (7-18); Calcium 9.2 mg/dl (8.5-10.1); Carbon Dioxide 23 mmol/L (21-32); Chloride 95 mmol/L (98-107); Glucose 126 mg/dl (70-99); Lipase 161 U/L (73-393); Potassium 3.7 mmol/L (3.5-5.1); Sodium 129 mmol/L (136-145)
[2019-01-24] MEDS ORDERED: IOVERSOL 100ml IV PRN (20:24)
[2019-01-24 20:32] LABS: iSTAT Creatinine 1.6 mg/dl (0.6-1.3); iSTAT Hemoglobin 11.9 g/dl (14.0-18.0); iSTAT Ionized Calcium 1.13 mmol/l (1.12-1.32); iSTAT Potassium 4.3 mEq/L (3.3-5.0)
--- NOTE | 2019-01-24 20:41 | CT Scan Report ---
CT abd pelvis IV con only CT DOSE: 524.33 mGy.cm HISTORY: pancreatic cancer, s/p Biliary stent, rising bili TECHNIQUE: Multiaxial CT images of the abdomen and pelvis were performed following the use of intrave nous contrast. A dose lowering technique was utilized adhering to the principles of ALARA. COMPARISON STUDY: 10/30/2008 no recent studies for comparison. FINDINGS: Mild atelectasis right base. Diffuse intrahepatic biliary ductal dilatation. Hypodensities within the liver consistent with metastatic deposits. Common bile duct stent is present. Pancreatic head mass measuring 3.5 x 4 cm. No significant dilatati on of the proximal pancreatic duct. Moderate distention of the pancreatic tail pancreatic duct. Operative changes of the right kidney consistent with a partial nephrectomy. Several small renal cyst s bilaterally. No evidence for hydronephrosis. Right lateral ventral wall hernia which has been described previously. Evaluation of the contents of the structures not possible due to technical cutoff regions. Bowel pattern overall is nonobstructive. Mild bladder wall thickening. Trace free fluid within the pe lvic cul-de-sac. Contrast is present within the gallbladder. This may be from a prior study which is not available. Progressive degenerative change of the lumbar spine with a potential lytic defect superior endplate L 3. IMPRESSION: 1. Findings of biliary ductal dilatation on intra as well as extrahepatic duct bases.. 2. Diffuse multifocal metastatic deposits within the liver. 3. Interval development of a large pancreatic head and body mass with estimated dimensions of 4 x 3.5 x 5 cm linear dimension. 4. Moderate distention of the proximal to mid pancreatic duct. 5. Pre-existing right lateral abdominal wall hernia. 6. Nonobstructive bowel pattern. 7. Potential early metastatic bone change. The above report was generated using voice recognition software. It may contain grammatical, syntax or spelling errors. Electronically signed by: Abelardo Stevenson M.D. 01/24/2019 8:40 PM
[2019-01-24] MEDS ORDERED: SODIUM CHLORIDE 0.9% 1000ML 1,000 ML IV ONE (20:48)
[2019-01-24 21:21] LABS: Appearance Urine Slightly Cloudy (Clear); Color Urine Amber
[2019-01-24 21:22] LABS: Ictotest Urine Positive (Negative); Specific Gravity Urine 1.026 (1.000-1.030); Sulfosalicylic Acid Urine Positive (Negative)
[2019-01-24 21:29] LABS: Bacteria Urine 1+ (Negative); Epithelial Cell Urine >30 /lpf (0-5); Hyaline Casts Urine 0-5 /lpf (0-5); RBC Urine 0-4 /hpf (0-4)
[2019-01-24 22:07] LABS: Bilirubin Direct 21.1 mg/dl (0-0.2)
--- NOTE | 2019-01-24 23:43 | History & Physical Report ---
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 [facility] records: Had a ERCP plus EUS on 01/19/2019 which showed severe localized biliary stricture likely due to mets. He had a stent placed. EUS showed irregular hypoechoic mass and pancreatic body as well as pancreatic duct dilation. Celiac neurolysis was also performed. 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 T bili on discharge was 18.8 on 01/23/2019. Creatinine on discharge was 1.2, GFR 58. Sodium was 131, chloride 94. Hemoglobin 11.9. LFT: ALT 117, AST 111, alk phos 338, T bili 18.8, lipase normal. Total protein 5.7 and albumin 2.8 Metastatic pancreatic head adenocarcinoma with liver and possibly bone metastasis -CT abdomen/pelvis today: biliary ductal dilatation on intra as well as extrahepatic duct bases; Diffuse multifocal metastatic deposits within the liver. Interval development of a large pancreatic head and body mass with estimated dimensions of 4 x 3.5 x 5 cm linear dimension. Moderate distention of the proximal to mid pancreatic duct. Pre-existing right lateral abdominal wall hernia. Nonobstructive bowel pattern. Potential early metastatic bone change. -LFT: Total bili 23.9, direct bili 21.1, AST 8109, ALT 130, alk phos 400 -Lipase normal -Repeat CA 19-9 pending -Continue pain regimen: Oxycodone 5 mg every 6 hours and lidocaine cream, Started on morphine 2 mg every 3 hours -Continue Zofran, famotidine, Creon, omeprazole Hyperbilirubinemia: Biliary obstruction s/p stent placement -Ct abdomen/pelvis today: Stent present. Biliary ductal dilatation on intra as well as extrahepatic duct bases Bilirubin on discharge from [facility] was 18.8 on 01/23/2019 -now 23.9 -Alk phos 400, 338 on 01/23/2019 -Repeat LFT in the morning -Consider GI consult if continues to worsen: Per Fanny Paniagua not unusual for bilirubin to continue rising soon after stent placement Hyponatremia: Likely secondary to pseudohyponatremia in the setting of pancreatic cancer from hyperlipemia versus hypotonic hyponatremia from renal failure in the setting of jaundice -Sodium 129. Was previously 128 on prior admission and improved with IV fluids to 137 -On discharge at [facility] was 131 on 01/23/2019 -Urine and serum osm -321 /276 -Lipid profile ordered -Received 1 L NS in the ED, continued on NS 100 cc per hour -Continue monitor BP Acute kidney injury: Patient with elevated BUN/varfaaswbo85/1.6, was 1.2 on 01/23/2019. He is urinatingurine aubrey in color which could be from hyperbilirubinemia versus dehydration -Received 1 L normal saline in the ED -Continue IV fluids NS at 100 cc/h -Continue to monitor BMP Concern for possible UTI No urinary symptoms UA positive with normal white blood cell count and vitals Urine culture pending No antibiotic treatment initiated at this time Newly diagnosed diabeteslikely related to pancreatic cancer -Continue home Lantus -Hold metformin in the setting of LAYNE -SSI Hypercholesterolemia: -Hold fenofibrate Hypertension: -Hold HCTZ in setting of hyponatremia, and LAYNE -Continue Metoprolol F/E/N - NSS at 100mL/hr. n.p.o. 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 Patient was discharged yesterdayplease refer to [facility] notes below. Patient currently reports upper abdominal pain radiating to back associated with nausea and heartburn which is pretty persistent. He also reports bloating whenever he eats. He has not had much to eat or drink since being discharged. Also reports shortness of breath/feeling winded if he walks down the [place] but not when he is laying down or going to the bathroom, Left- sided rib pain, itchy skin. Patient also reports occasional sugar spikes for which she takes insulin. He had some diarrhea over the weekend which turned into constipation and he had good bowel movements before going to [facility]. He took some laxative last night and had a good bowel movement this morning as well which was dark brown in color and nonbloody. Patient denies any fever, chills, headache, lightheadedness, hematuria, hematochezia, melena, constipation, dysuri a. [facility] records reviewed: Had a ERCP plus EUS on 01/19/2019 which showed severe localized biliary stricture likely due to mets. He had a stent placed. EUS showed irregular hypoechoic mass and pancreatic body as well as pancreatic duct dilation. Celiac neurolysis was also performed. 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 T bili on discharge was 18.8 on 01/23/2019. Creatinine on discharge was 1.2, GFR 58. Sodium was 131, chloride 94. Hemoglobin 11.9. LFT: ALT 117, AST 111, alk phos 338, T bili 18.8, lipase normal. Total protein 5.7 and albumin 2.8 Social history: Reports smoking for 20 years 2 packs/day but quit 30 years ago. Drinks an occasional wine but he reports drinking more when he was younger. Allergies Allergy/AdvReac Type Severity Reaction Status Date / Time BRADY Inhibitors Allergy Mild PT STATES Verified 01/24/19 20:22 DOESNT WORK Penicillins Allergy Mild FAMILY HX Verified 01/24/19 20:22 carbamazepine Allergy Rash Verified 01/24/19 20:22 Milk Containing Products AdvReac Unknown GAS Verified 01/24/19 20:22 gluten AdvReac SENSITIVITY-GI Verified 01/24/19 20:22 UPSET Home Medications Home Medications Medication Instructions Recorded Confirmed Type Restasis 1 drp OPB BID 12/25/17 01/24/19 History aspirin 81 mg PO HS 12/25/17 01/24/19 History celecoxib [Celebrex] 200 mg PO QAM 12/25/17 01/24/19 History fenofibrate 160 mg PO HS 12/25/17 01/24/19 History fluticasone propionate [Flonase 2 spray INTRANASAL DAILY PRN 12/25/17 01/24/19 History Allergy Relief] metoprolol succinate 100 mg PO QAM 12/25/17 01/24/19 History omeprazole 20 mg PO QAM 12/25/17 01/24/19 History sildenafil [Viagra] 100 mg PO DAILY PRN 12/25/17 01/24/19 History metformin 500 mg PO HS 08/20/18 01/24/19 History Nutra Veiw 1 tab PO QAM 12/24/18 01/24/19 History fluorometholone [FML Liquifilm] 1 drp OPB BID 12/24/18 01/24/19 History hydrochlorothiazide 12.5 mg PO HS 12/24/18 01/24/19 History blood sugar diagnostic [OneTouch #100 ea 12/25/18 01/24/19 Rx Verio] lancets [OneTouch Delica Lancets] #100 ea 12/25/18 01/24/19 Rx Bifidobacterium infantis [Align] 4 mg PO QAM 01/24/19 01/24/19 History famotidine 20 mg PO BID 01/24/19 01/24/19 History insulin glargine [Lantus Solostar 21 unit SUBCUT HS 01/24/19 01/24/19 History U-100 Insulin] lidocaine 1 applic TOPICAL TID PRN 01/24/19 01/24/19 History sqvcrl-[id number] [Creon] 1 cap PO TIDM 01/24/19 01/24/19 History ondansetron 4 mg PO TID PRN 01/24/19 01/24/19 History oxycodone 5 mg PO Q6H PRN 01/24/19 01/24/19 History Past Med/Surg History Medical History BPH (benign prostatic hyperplasia) Cancer SKIN CA - REMOVED Chronic back pain LOWER BACK Diabetes mellitus, type 2 RECENT START MEDS GERD (gastroesophageal reflux disease) Hyperlipidemia Hypertension Osteoarthritis Sleep apnea CPAP Spinal stenosis Tremor HAND-HAD TESTING YEARS AGO-NO STROKE Surgical History H/O arthroscopy of knee BILAT. KNEES-MULTIPLE SURGERIES H/O elbow surgery History of appendectomy History of cataract surgery History of partial nephrectomy RT - BENIGN CYST History of surgery REMOVAL OF BONE SPURS - C5-C6 History of total knee replacement RT Nausea and vomiting after administration of anesthetic agent ON OCC S/P rotator cuff repair LEFT Family History Sister Family history of reaction to anesthesia Breast cancer Sister Family history of diabetes mellitus Lung cancer Sister Family history of diabetes mellitus Mother Family history of diabetes mellitus Breast cancer Father Colorectal cancer Social History Preferred Language: Canadian Communication Ability: Effective 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 Beliefs That Will Affect Care: None Current Living Situation: Spouse Other Information That Helps Us Care for You: No Feels Safe at Home: Yes Safety Concerns: Feels Safe At This Time Smoking Status: Never smoker Cigarettes Per Day: quit 25 years ago ; Do You Dip or Chew Tobacco: No ; Second Hand Exposure: No ; Hx Alcohol Use: No Hx Substance Use: No Review of Systems Review of Systems: As per HPI Physical Exam Physical Exam: General: In NAD, pleasant Neuro: A&O x 4 HEENT: scleral icterus, dry oral mucosa Pulm: CTAB equal breath sounds bilaterally CV: RRR, no m/r/g, cap refill 3 secs Abdomen:+BS, TTP in all quadrants especially over upper abdomen and epigastric region, no-rebound tenderness, non-distended, RUQ region "loose muscle" s/p partial nephrectomy with rib removal - non-TTP, takes up most of RUQ region LE: no LE edema, no calf TTP Skin: generalized jaundice Results & Data Vital Signs (Past 12 Hours) Vital Signs Temp Pulse Pulse Pulse Resp BP BP 01/24/19 22:48 78 18 130/81 01/24/19 20:48 84 20 130/71 01/24/19 19:09 01/24/19 18:34 36.4 C L 95 H 20 112/75 Pulse Ox 01/24/19 22:48 97 01/24/19 20:48 99 01/24/19 19:09 96 01/24/19 18:34 96 Laboratory Results Abnormal lab results 01/24/19 01/24/19 01/24/19 Range/Units 19:01 19:01 19:01 RBC 3.69 L (4.7-6.1) M/uL Hgb 12.2 L (14.0-18.0) g/dL POC Hgb (14.0-18.0) g/dl Hct 35.0 L (42-52) % POC Hct (42-52) % RDW Std Deviation 46.9 H (36.4-46.3) fL MPV 11.8 H (7.4-10.4) fL Immature Gran # (Auto) 0.04 H (0.00-0.02) K/uL Lymph # (Auto) 0.90 L (1.2-3.4) K/uL [place] # (Auto) 0.60 H (0.11-0.59) K/uL POC Sodium (135-144) mEq/L Sodium 129 L (136-145) mmol/L POC Chloride (101-112) mEq/L Chloride 95 L (98-107) mmol/L POC Anion Gap (16-25) mmol/L POC BUN (7-18) mg/dl BUN 29 H (7-18) mg/dl POC Creatinine (0.6-1.3) mg/dl Glucose 126 H (70-99) mg/dl POC Glucose (other) (70-99) mg/dl Osmolality 276 L (280-300) mOsm/kg Total Bilirubin 23.9 H (0.2-1) mg/dl Direct Bilirubin 21.1 H (0-0.2) mg/dl AST 109 H (15-37) U/L ALT 130 H (12-78) U/L Alkaline Phosphatase 400 H (45-117) U/L Albumin 2.5 L (3.4-5.0) gm/dl Urine Appearance (Clear) Urine WBC (0-5) /hpf Ur Epithelial Cells (0-5) /lpf Urine Bacteria (Negative) Urine Osmolality (500-800) mOsm/kg 01/24/19 01/24/19 01/24/19 Range/Units 20:17 20:58 20:58 RBC (4.7-6.1) M/uL Hgb (14.0-18.0) g/dL POC Hgb 11.9 L (14.0-18.0) g/dl Hct (42-52) % POC Hct 35 L (42-52) % RDW Std Deviation (36.4-46.3) fL MPV (7.4-10.4) fL Immature Gran # (Auto) (0.00-0.02) K/uL Lymph # (Auto) (1.2-3.4) K/uL [place] # (Auto) (0.11-0.59) K/uL POC Sodium 128 L (135-144) mEq/L Sodium (136-145) mmol/L POC Chloride 96 L (101-112) mEq/L Chloride (98-107) mmol/L POC Anion Gap 13.0 L (16-25) mmol/L POC BUN 36 H (7-18) mg/dl BUN (7-18) mg/dl POC Creatinine 1.6 H (0.6-1.3) mg/dl Glucose (70-99) mg/dl POC Glucose (other) 155 H (70-99) mg/dl Osmolality (280-300) mOsm/kg Total Bilirubin (0.2-1) mg/dl Direct Bilirubin (0-0.2) mg/dl AST (15-37) U/L ALT (12-78) U/L Alkaline Phosphatase (45-117) U/L Albumin (3.4-5.0) gm/dl Urine Appearance Slightly Cloudy A (Clear) Urine WBC 10-30 H (0-5) /hpf Ur Epithelial Cells >30 H (0-5) /lpf Urine Bacteria 1+ H (Negative) Urine Osmolality 321 L (500-800) mOsm/kg Diagnostic Findings CT abd pelvis IV con only CT DOSE: 524.33 mGy.cm HISTORY: pancreatic cancer, s/p Biliary stent, rising bili TECHNIQUE: Multiaxial CT images of the abdomen and pelvis were performed following the use of intravenous contrast. A dose lowering technique was utilized adhering to the principles of ALARA. COMPARISON STUDY: 10/30/2008 no recent studies for comparison. FINDINGS: Mild atelectasis right base. Diffuse intrahepatic biliary ductal dilatation. Hypodensities within the liver consistent with metastatic deposits. Common bile duct stent is present. Pancreatic head mass measuring 3.5 x 4 cm. No significant dilatation of the proximal pancreatic duct. Moderate distention of the pancreatic tail pancreatic duct. Operative changes of the right kidney consistent with a partial nephrectomy. Several small renal cysts bilaterally. No evidence for hydronephrosis. Right lateral ventral wall hernia which has been described previously. Evaluation of the contents of the structures not possible due to technical cutoff regions. Bowel pattern overall is nonobstructive. Mild bladder wall thickening. Trace free fluid within the pelvic cul-de-sac. Contrast is present within the gallbladder. This may be from a prior study which is not available. Progressive degenerative change of the lumbar spine with a potential lytic defect superior endplate L3. IMPRESSION: 1. Findings of biliary ductal dilatation on intra as well as extrahepatic duct bases.. 2. Diffuse multifocal metastatic deposits within the liver. 3. Interval development of a large pancreatic head and body mass with estimated dimensions of 4 x 3.5 x 5 cm linear dimension. 4. Moderate distention of the proximal to mid pancreatic duct. 5. Pre-existing right lateral abdominal wall hernia. 6. Nonobstructive bowel pattern. 7. Potential early metastatic bone change. Medications Administered Current Inpatient Medications Ioversol (Optiray 320 100ml) 94 ml IV ONCE PRN PRN Reason: Interaction Checking Stop: 01/28/19 20:23 Last Admin: 01/24/19 20:25 Dose: 94 ml Documented by: Code Status & VTE Plan Code Status DNR/DNI per discussion with patient and VTE Prophylaxis Plan VTE Prophylaxis will be ordered: Yes Supervising Physician Co-Signing Physician Notes Abelardo Lowery is a pleasant 73yo C male with metastatic pancreatic adenocarcinoma s/p biliary stenting at [facility] on 01/22/19 presenting with persistently elevated bilirubin, upper abdominal pain, nausea, weakness and fatigue. On exam he is afebrile, hemodynamically stable, NAD, pleasant Skin -+Jaundice, +icterus HEENT - dry mucus membranes, neck supple, no JVD Heart - +S1/S2, regular, no m/r/g Lungs - CTA Abd - +BS, soft, tender in epigastric region, no rebound/guarding, + soft tissue flank bulge on right Ext - no edema Labs and images reviewed, Significant for stable normochromic/normocytic anemia - Hgb=12.2, Hct=35, Id=618, Cl=95, BUN=29, Cr=1.6 (POC), RB=907, Tbili=23.9, Dbili=21.1 CT abdomen with biliary ductal dilation on intra and extrahepatic duct base, diffuse metastatic deposits in liver, large pancreatic head and body mass Assessment/Plan: Unfortunate 73yo C male with metastatic pancreatic adenocarcinoma, progression of disease with new pancreatic head and body mass, s/p biliary stent placement at [facility] [place] on 01/22 for obstruction presenting with persistent elevation of bilirubin. Patient afebrile, HD stable, no leukocytosis -Admit to medical floor -Repeat LFTs in AM - if AP/Bili continues to increase would obtain further imaging of biliary tract, MRCP to assess stent location and patency -Oncology consultation appreciated -Symptom management with Zofran and Morphine PRN -Remainder of plan as above PG Care Time/CCT Total # of Minutes Spent Total Time Spent with Patient: Total time spent is greater than 50% in coordination of care (as documented) at patient's floor/unit and/or counseling patient: Resident Activity Tracking Resident Involvement: Resident Care Provided Care Provided: Adult Hospital Medicine (1) Hypertension Hypertension type: essential hypertension Qualified Code(s): I10 - Essential (primary) hypertension
[2019-01-24] MEDS ORDERED: MoRPHine SULFATE 4 MG/ML 1 ML CARP\\VIAL ONE (23:46)
--- NOTE | 2019-01-25 00:26 | Emergency Department Note ---
Entered by Donita Carter acting as a scribe for Sudarshan Ramesh MD History of Present Illness General Chief complaint: Abnormal Labs/Diagnostic Testing Stated complaint: PANCREATIC CANCER, ABNORMAL LABS Time Seen by Provider: 01/24/19 18:43 Source: patient Limitations: no limitations History of Present Illness Onset (ago): hour(s) (earlier today) Location: abdomen Pain Consistency: + other (episode) Maximum Pain Intensity: 5 Current Pain Intensity: 0 Quality: + other (abnormal labs) Associated symptoms: + denies other symptoms (cough, congestion, nausea, and diarrhea. ) and + other (feeling "worn out") The patient is a 73 year old male who presents to the Emergency Room with complaints of an episode abnormal labs earlier today. The patient states that he was discharged from the hospital yesterday after being treated for jaundice, and he had chemotherapy preparation done today. He states that his bilirubin was 22 earlier today during the chemotherapy prep. The patient reports that he had stents put in the bile duct a few days ago. He complains of feeling "worn out" and lower back pain. The patient denies any cough, congestion, nausea, and diarrhea. He notes that he currently has pancreatic cancer. Home Medications Home Medications Medication Instructions Recorded Confirmed Type Restasis 1 drp OPB BID 12/25/17 01/24/19 History aspirin 81 mg PO HS 12/25/17 01/24/19 History celecoxib [Celebrex] 200 mg PO QAM 12/25/17 01/24/19 History fenofibrate 160 mg PO HS 12/25/17 01/24/19 History fluticasone propionate [Flonase 2 spray INTRANASAL DAILY PRN 12/25/17 01/24/19 History Allergy Relief] metoprolol succinate 100 mg PO QAM 12/25/17 01/24/19 History omeprazole 20 mg PO QAM 12/25/17 01/24/19 History sildenafil [Viagra] 100 mg PO DAILY PRN 12/25/17 01/24/19 History metformin 500 mg PO HS 08/20/18 01/24/19 History Nutra Veiw 1 tab PO QAM 12/24/18 01/24/19 History fluorometholone [FML Liquifilm] 1 drp OPB BID 12/24/18 01/24/19 History hydrochlorothiazide 12.5 mg PO HS 12/24/18 01/24/19 History blood sugar diagnostic [OneTouch #100 ea 12/25/18 01/24/19 Rx Verio] lancets [SaimaTouch Delica Lancets] #100 ea 12/25/18 01/24/19 Rx Bifidobacterium infantis [Align] 4 mg PO QAM 01/24/19 01/24/19 History famotidine 20 mg PO BID 01/24/19 01/24/19 History insulin glargine [Lantus Solostar 21 unit SUBCUT HS 01/24/19 01/24/19 History U-100 Insulin] lidocaine 1 applic TOPICAL TID PRN 01/24/19 01/24/19 History zrhret-fimiaeek-uvawdig [Creon] 1 cap PO TIDM 01/24/19 01/24/19 History ondansetron 4 mg PO TID PRN 01/24/19 01/24/19 History oxycodone 5 mg PO Q6H PRN 01/24/19 01/24/19 History Allergies Allergy/AdvReac Type Severity Reaction Status Date / Time BRADY Inhibitors Allergy Mild PT STATES Verified 01/24/19 20:22 DOESNT WORK Penicillins Allergy Mild FAMILY HX Verified 01/24/19 20:22 carbamazepine Allergy Rash Verified 01/24/19 20:22 Milk Containing Products AdvReac Unknown GAS Verified 01/24/19 20:22 gluten AdvReac SENSITIVITY-GI Verified 01/24/19 20:22 UPSET Past Med/Surg History Medical History BPH (benign prostatic hyperplasia) Cancer SKIN CA - REMOVED Chronic back pain LOWER BACK Diabetes mellitus, type 2 RECENT START MEDS GERD (gastroesophageal reflux disease) Hyperlipidemia Hypertension Osteoarthritis Sleep apnea CPAP Spinal stenosis Tremor HAND-HAD TESTING YEARS AGO-NO STROKE Surgical History H/O arthroscopy of knee BILAT. KNEES-MULTIPLE SURGERIES H/O elbow surgery History of appendectomy History of cataract surgery History of partial nephrectomy RT - BENIGN CYST History of surgery REMOVAL OF BONE SPURS - C5-C6 History of total knee replacement RT Nausea and vomiting after administration of anesthetic agent ON OCC S/P rotator cuff repair LEFT Family History Sister Family history of reaction to anesthesia Breast cancer Sister Family history of diabetes mellitus Lung cancer Sister Family history of diabetes mellitus Mother Family history of diabetes mellitus Breast cancer Father Colorectal cancer Social History Preferred Language: Maori Communication Ability: Effective Finish Off Operator Required: No Beliefs That Will Affect Care: None Current Living Situation: Spouse Other Information That Helps Us Care for You: No Feels Safe at Home: Yes Safety Concerns: Feels Safe At This Time Smoking Status: Never smoker Cigarettes Per Day: quit 25 years ago ; Do You Dip or Chew Tobacco: No ; Second Hand Exposure: No ; Hx Alcohol Use: No Hx Substance Use: No Review of Systems See HPI for pertinent positives & negatives. and A total of 10 systems reviewed and were otherwise negative Physical Exam Vital Signs Vital Signs - 24 hr 01/24/19 20:48 01/24/19 22:48 01/24/19 23:00 Pulse Rate 83 Pulse Rate [Apical] 78 Pulse Rate [Finger] 84 Pulse Rate from SpO2 Sensor 81 Respiratory Rate 20 18 22 Respiratory Effort / Characteristics Non-Labored Spontaneous Non-Labored Respiratory Depth Normal Normal Blood Pressure 119/84 Blood Pressure [Right Arm] 130/71 130/81 Blood Pressure Mean 95 Blood Pressure Mean [Right Arm] 90 97 Pulse Oximetry 99 97 98 Oxygen Delivery Method Room Air Room Air Room Air 01/24/19 23:30 Pulse Rate 80 Pulse Rate [Apical] Pulse Rate [Finger] Pulse Rate from SpO2 Sensor 76 Respiratory Rate 15 Respiratory Effort / Characteristics Respiratory Depth Blood Pressure 127/75 Blood Pressure [Right Arm] Blood Pressure Mean 92 Blood Pressure Mean [Right Arm] Pulse Oximetry 98 Oxygen Delivery Method Room Air GENERAL: Awake, alert, Chronically ill-appearing, in no distress HENT: Normocephalic, atraumatic. Oropharynx with dry mucous membranes and otherwise unremarkable. EYES: Normal conjunctiva. Sclera icterus. NECK: Supple. No nuchal rigidity. FROM. No JVD. RESPIRATORY: CTAB. CARDIAC: Regular rate, normal rhythm. Extremities warm and well perfused. Pulses equal. ABDOMEN: Soft, with mild distension. No tenderness to palpation. No rebound or guarding. Reducible right flank mass. RECTAL: Deferred. MUSCULOSKELETAL: Chest examination reveals no tenderness. The back is symmetrical on inspection without obvious abnormality. There is no CVA tenderness to palpation. No joint edema. LOWER EXTREMITIES: Calves are equal size bilaterally and non-tender. No edema. No discoloration. NEURO: Normal sensorium. No sensory or motor deficits noted. SKIN: No rash noted. Jaundice noted. Course 1856: The patient was evaluated in room B06. A complete history and physical exam was performed. 2015: I updated and reevaluated the patient. 2120: I spoke with Dr. Chang, [facility], about the patients case. She said that what was done is the extent of what can be done for the patient. In one respect, they could expect bilirubin levels to rise and peak before they come done. In the other respect, it could be a worsening of metastatic disease. She does not think that patient needs to be transferred. 2205: I spoke with Dr. Jennifer Cisse, [facility] hospitalist, about the patient's case. She will further evaluate the patient. Administered Medications Lipase/Protease/Amylase (Pancreaze (Lipase 10,500u)) 1 cap PO TIDM LAKIA Stop: 02/24/19 07:59 Last Admin: 01/25/19 17:02 Dose: 1 cap Documented by: [id number] Admin: 01/25/19 12:40 Dose: 1 cap Documented by: [id number] Admin: 01/25/19 08:15 Dose: 1 cap Documented by: [id number] Famotidine (Pepcid) 20 mg PO BID [place]AK[place] Stop: 02/24/19 08:59 Last Admin: 01/25/19 08:16 Dose: 20 mg Documented by: [id number] Heparin Sodium (Porcine) (Heparin Sodium (Porcine)) 5,000 units SQ Q12 [place] Stop: 02/24/19 08:59 Last Admin: 01/25/19 08:27 Dose: 5,000 units Documented by: [id number] Cosigned by: [id number] Sodium Chloride (Nss 1000ml) 1,000 mls @ 100 mls/hr IV .Q10H [place]AK[place] Stop: 02/24/19 00:58 Last Admin: 01/25/19 11:41 Dose: 100 mls/hr Documented by: [id number] Infusion: 01/25/19 11:30 Dose: 100 mls/hr Documented by: [id number] Admin: 01/25/19 01:30 Dose: 100 mls/hr Documented by: [id number] Insulin Aspart (Novolog Flexpen) 0 units SC ACHS [place] Stop: 02/24/19 16:29 Last Admin: 01/25/19 17:54 Dose: Not Given Documented by: [id number] Cosigned by: [id number] Metoprolol Succinate (Toprol Xl) 100 mg PO QAM [place] Stop: 02/24/19 08:59 Last Admin: 01/25/19 08:17 Dose: 100 mg Documented by: [id number] Miscellaneous (Order Awaiting Action) 1 ea N/A QS [place] Stop: 02/24/19 02:29 Last Admin: 01/25/19 16:04 Dose: Not Given Documented by: [id number] Admin: 01/25/19 10:06 Dose: Not Given Documented by: [id number] Admin: 01/25/19 02:24 Dose: Not Given Documented by: [id number] Miscellaneous (Order Awaiting Action) 1 ea N/A QS [facility] Stop: 02/24/19 02:29 Last Admin: 01/25/19 16:04 Dose: Not Given Documented by: [id number] Admin: 01/25/19 10:05 Dose: Not Given Documented by: [id number] Admin: 01/25/19 02:25 Dose: Not Given Documented by: [id number] Morphine Sulfate (Morphine Sulfate) 2 mg IV Q3H PRN PRN Reason: Pain Stop: 02/08/19 00:58 Last Admin: 01/25/19 17:58 Dose: 2 mg Documented by: [id number] Admin: 01/25/19 09:31 Dose: 2 mg Documented by: [id number] Ondansetron HCl (Zofran) 4 mg IV Q6H PRN PRN Reason: Nausea Stop: 02/24/19 00:58 Last Admin: 01/25/19 18:32 Dose: 4 mg Documented by: [id number] Pantoprazole Sodium (Protonix) 40 mg PO DAILY LAKIA Stop: 02/24/19 08:59 Last Admin: 01/25/19 08:17 Dose: 40 mg Documented by: [id number] Discontinued Medications Acetaminophen (Ofirmev) 1,000 mg in 100 mls @ 400 mls/hr IV NOW STA Stop: 01/24/19 19:29 Last Infusion: 01/24/19 20:03 Dose: 0 mls/hr Documented by: [id number] Admin: 01/24/19 19:22 Dose: 400 mls/hr Documented by: [id number] Famotidine (Pepcid 20mg Iv Push) 20 mg in 5 mls @ 2.5 mls/min IV NOW STA Stop: 01/24/19 19:31 Last Admin: 01/24/19 19:32 Dose: 2.5 mls/min Documented by: [id number] Sodium Chloride (Nss 1000ml) 1,000 mls @ 999 mls/hr IV .Q1H1M ONE Stop: 01/24/19 21:48 Last Infusion: 01/24/19 21:57 Dose: 0 mls/hr Documented by: [id number] Admin: 01/24/19 20:55 Dose: 999 mls/hr Documented by: [id number] Insulin Aspart (Novolog Flexpen) 0 units SC Q6H [place]AK[place] Stop: 02/24/19 05:59 Last Admin: 01/25/19 12:06 Dose: Not Given Documented by: [id number] Cosigned by: [id number] Admin: 01/25/19 05:57 Dose: Not Given Documented by: [id number] Cosigned by: [id number] Ioversol (Optiray 320 100ml) 94 ml IV ONCE PRN PRN Reason: Interaction Checking Stop: 01/28/19 20:23 Last Admin: 01/24/19 20:25 Dose: 94 ml Documented by: [id number] Morphine Sulfate (Morphine Sulfate) 4 mg IV NOW STA Stop: 01/24/19 19:16 Last Admin: 01/24/19 19:22 Dose: 4 mg Documented by: [id number] Morphine Sulfate (Morphine Sulfate) 4 mg IV NOW STA Stop: 01/24/19 23:44 Last Admin: 01/24/19 23:58 Dose: 4 mg Documented by: [id number] Morphine Sulfate (Morphine Sulfate) 2 mg IV NOW STA Stop: 01/25/19 12:54 Last Admin: 01/25/19 13:42 Dose: 2 mg Documented by: [id number] Ondansetron HCl (Zofran) 4 mg IV NOW STA Stop: 01/24/19 19:31 Last Admin: 01/24/19 19:32 Dose: 4 mg Documented by: [id number] Zolpidem Tartrate (Ambien) Confirm Administered Dose 5 mg .ROUTE .STK-MED ONE Stop: 01/25/19 02:24 Last Admin: 01/25/19 02:24 Dose: 5 mg Documented by: [id number] Medical Decision Making Differential Diagnosis Differential includes acute coronary syndrome, myocardial infarction, CVA, TIA, anemia, infection, pneumonia, UTI, pyelonephritis, poor nutrition, dehydration, electrolyte disturbance,hypoglycemia. Medical Records Attestation: I reviewed the patient's medical records. Home Medications Current Medication List: was personally reviewed by me Laboratory Data Attestation: I reviewed the patient's lab results. Result diagrams: 01/25/19 05:18 01/25/19 05:18 Lab Results 01/24/19 01/24/19 01/24/19 Range/Units 19:01 19:01 19:01 WBC 8.15 (4.8-10.8) K/uL RBC 3.69 L (4.7-6.1) M/uL Hgb 12.2 L (14.0-18.0) g/dL POC Hgb (14.0-18.0) g/dl Hct 35.0 L (42-52) % POC Hct (42-52) % MCV 94.9 (80-100) fL MCH 33.1 (25-34) pg MCHC 34.9 (32-36) g/dL RDW Std Deviation 46.9 H (36.4-46.3) fL RDW Coeff of Darrell 13.5 (11.5-14.5) % Plt Count 240 (130-400) K/uL MPV 11.8 H (7.4-10.4) fL Immature Gran % (Auto) 0.5 % Neut % (Auto) 78.1 % Lymph % (Auto) 11.0 % [place] % (Auto) 7.4 % Eos % (Auto) 2.6 % Baso % (Auto) 0.4 % Immature Gran # (Auto) 0.04 H (0.00-0.02) K/uL Neut # (Auto) 6.37 (1.4-6.5) K/uL Lymph # (Auto) 0.90 L (1.2-3.4) K/uL [place] # (Auto) 0.60 H (0.11-0.59) K/uL Eos # (Auto) 0.21 (0-0.5) K/uL Baso # (Auto) 0.03 (0-0.2) K/uL POC Sodium (135-144) mEq/L Sodium 129 L (136-145) mmol/L POC Potassium (3.3-5.0) mEq/L Potassium 3.7 (3.5-5.1) mmol/L POC Chloride (101-112) mEq/L Chloride 95 L (98-107) mmol/L Carbon Dioxide 23 (21-32) mmol/L POC Total CO2 (24-31) mEq/l Anion Gap 11.0 (3-11) POC Anion Gap (16-25) mmol/L POC BUN (7-18) mg/dl BUN 29 H (7-18) mg/dl Creatinine (0.6-1.4) mg/dl POC Creatinine (0.6-1.3) mg/dl Est Cr Clr Drug Dosing Not Reportable Est GFR ( Amer) Not Reportable Est GFR (Non-Af Amer) Not Reportable BUN/Creatinine Ratio TNP Glucose 126 H (70-99) mg/dl POC Glucose (other) (70-99) mg/dl Osmolality 276 L (280-300) mOsm/kg Calcium 9.2 (8.5-10.1) mg/dl POC Ioniz Calcium Summer (1.12-1.32) mmol/l Phosphorus 3.0 (2.5-4.9) mg/dl Magnesium 2.0 (1.8-2.4) mg/dl Total Bilirubin 23.9 H (0.2-1) mg/dl Direct Bilirubin 21.1 H (0-0.2) mg/dl AST 109 H (15-37) U/L ALT 130 H (12-78) U/L Alkaline Phosphatase 400 H (45-117) U/L Total Protein (6.4-8.2) gm/dl Albumin 2.5 L (3.4-5.0) gm/dl Globulin TNP Albumin/Globulin Ratio TNP Lipase 161 (73-393) U/L Urine Color Urine Appearance (Clear) Urine pH (4.5-7.5) Ur Specific [place] (1.000-1.030) Urine Protein (Negative) Urine Glucose (UA) (Negative) Urine Ketones (Negative) Urine Blood (Negative) Urine Nitrite (Negative) Urine Bilirubin (Negative) Urine Urobilinogen (Negative) Ur Leukocyte Esterase (Negative) Urine RBC (0-4) /hpf Urine WBC (0-5) /hpf Ur Epithelial Cells (0-5) /lpf Urine Bacteria (Negative) Hyaline Casts (0-5) /lpf Urine Osmolality (500-800) mOsm/kg 01/24/19 01/24/19 01/24/19 Range/Units 20:17 20:58 20:58 WBC (4.8-10.8) K/uL RBC (4.7-6.1) M/uL Hgb (14.0-18.0) g/dL POC Hgb 11.9 L (14.0-18.0) g/dl Hct (42-52) % POC Hct 35 L (42-52) % MCV (80-100) fL MCH (25-34) pg MCHC (32-36) g/dL RDW Std Deviation (36.4-46.3) fL RDW Coeff of Darrell (11.5-14.5) % Plt Count (130-400) K/uL MPV (7.4-10.4) fL Immature Gran % (Auto) % Neut % (Auto) % Lymph % (Auto) % [place] % (Auto) % Eos % (Auto) % Baso % (Auto) % Immature Gran # (Auto) (0.00-0.02) K/uL Neut # (Auto) (1.4-6.5) K/uL Lymph # (Auto) (1.2-3.4) K/uL [place] # (Auto) (0.11-0.59) K/uL Eos # (Auto) (0-0.5) K/uL Baso # (Auto) (0-0.2) K/uL POC Sodium 128 L (135-144) mEq/L Sodium (136-145) mmol/L POC Potassium 4.3 (3.3-5.0) mEq/L Potassium (3.5-5.1) mmol/L POC Chloride 96 L (101-112) mEq/L Chloride (98-107) mmol/L Carbon Dioxide (21-32) mmol/L POC Total CO2 24 (24-31) mEq/l Anion Gap (3-11) POC Anion Gap 13.0 L (16-25) mmol/L POC BUN 36 H (7-18) mg/dl BUN (7-18) mg/dl Creatinine (0.6-1.4) mg/dl POC Creatinine 1.6 H (0.6-1.3) mg/dl Est Cr Clr Drug Dosing Est GFR ( Amer) Est GFR (Non-Af Amer) BUN/Creatinine Ratio Glucose (70-99) mg/dl POC Glucose (other) 155 H (70-99) mg/dl Osmolality (280-300) mOsm/kg Calcium (8.5-10.1) mg/dl POC Ioniz Calcium Summer 1.13 (1.12-1.32) mmol/l Phosphorus (2.5-4.9) mg/dl Magnesium (1.8-2.4) mg/dl Total Bilirubin (0.2-1) mg/dl Direct Bilirubin (0-0.2) mg/dl AST (15-37) U/L ALT (12-78) U/L Alkaline Phosphatase (45-117) U/L Total Protein (6.4-8.2) gm/dl Albumin (3.4-5.0) gm/dl Globulin Albumin/Globulin Ratio Lipase (73-393) U/L Urine Color Nhi Urine Appearance Slightly Cloudy A (Clear) Urine pH (4.5-7.5) Ur Specific [place] 1.026 (1.000-1.030) Urine Protein (Negative) Urine Glucose (UA) (Negative) Urine Ketones (Negative) Urine Blood (Negative) Urine Nitrite (Negative) Urine Bilirubin (Negative) Urine Urobilinogen (Negative) Ur Leukocyte Esterase (Negative) Urine RBC 0-4 (0-4) /hpf Urine WBC 10-30 H (0-5) /hpf Ur Epithelial Cells >30 H (0-5) /lpf Urine Bacteria 1+ H (Negative) Hyaline Casts 0-5 (0-5) /lpf Urine Osmolality 321 L (500-800) mOsm/kg Imaging Data Radiologist's Impression: Radiology results as stated below per my review and the radiologist's interpretation: CT abd pelvis IV con only CT DOSE: 524.33 mGy.cm HISTORY: pancreatic cancer, s/p Biliary stent, rising bili TECHNIQUE: Multiaxial CT images of the abdomen and pelvis were performed following the use of intravenous contrast. A dose lowering technique was utilized adhering to the principles of ALARA. COMPARISON STUDY: 10/30/2008 no recent studies for comparison. FINDINGS: Mild atelectasis right base. Diffuse intrahepatic biliary ductal dilatation. Hypodensities within the liver consistent with metastatic deposits. Common bile duct stent is present. Pancreatic head mass measuring 3.5 x 4 cm. No significant dilatation of the proximal pancreatic duct. Moderate distention of the pancreatic tail pancreatic duct. Operative changes of the right kidney consistent with a partial nephrectomy. Several small renal cysts bilaterally. No evidence for hydronephrosis. Right lateral ventral wall hernia which has been described previously. Evaluation of the contents of the structures not possible due to technical cutoff regions. Bowel pattern overall is nonobstructive. Mild bladder wall thickening. Trace free fluid within the pelvic cul-de-sac. Contrast is present within the gallbladder. This may be from a prior study which is not available. Progressive degenerative change of the lumbar spine with a potential lytic defect superior endplate L3. IMPRESSION: 1. Findings of biliary ductal dilatation on intra as well as extrahepatic duct bases.. 2. Diffuse multifocal metastatic deposits within the liver. 3. Interval development of a large pancreatic head and body mass with estimated dimensions of 4 x 3.5 x 5 cm linear dimension. 4. Moderate distention of the proximal to mid pancreatic duct. 5. Pre-existing right lateral abdominal wall hernia. 6. Nonobstructive bowel pattern. 7. Potential early metastatic bone change. The above report was generated using voice recognition software. It may contain grammatical, syntax or spelling errors. Electronically signed by: Abelardo Stevenson M.D. 01/24/2019 8:40 PM ECG Data Attestation: I personally reviewed and interpreted this ECG as follows: Indication: other (abnormal labs) Rate (beats per minute): 89 Rhythm: sinus rhythm Findings: + other (normal axis, QTC 438, no overt acute ischemia) and + PVC (occasional) Blood Pressure Blood Pressure Findings: Elevated blood pressure Blood Pressure Disposition: further management by hospitalist RANDEE Niño Patient is a pleasant 73-year-old gentleman with a past medical history of recent diagnosis of metastatic pancreatic cancer who presents emerged department with a worsening bilirubin after being admitted to [facility] on Sunday and discharged yesterday after having a biliary stent for elevated bilirubin. The family reports that his bilirubin was 19 on discharge. Lab work today demonstrated a bilirubin of 22 and therefore he was referred to emergency department. Initially the patient reports he feels his weakness is the same as it was on his discharge yesterday. On arrival the patient is chronically ill- appearing with severe jaundice and scleral icterus. He has a distended abdomen that is nontender.Blood work demonstrates increased bilirubin to 23. WBC wnl. H/H 12.2/35.5. Platelets wnl. Chemistry without acidosis. Cr. 1.6 obtained by ISTAT only given patient's severe icterus effective lab sample. Sodium 129 with serum Osm 276. AST and ALT 100s with Alk Phos 400 in the setting of patient's recent biliary stent and metastatic disease. UA with epitheleal cell and patient denies urinary sx. Urine osms 321, which could suggest a component of SIADH given serum Osm. CT and pelvis was performed and demonstrated extensive findings related to his known metastatic pancreatic cancer. I did discuss the case with [facility] GI on-call Dr. Chang who reviewed the patient's recent admission and explained that there was unlikely to be any additional interventions for this patient. Moreover oftentimes they may see a further increase in bilirubin before a decline after a stent for his condition. However she acknowledges that the rising bilirubin may also be due to his extensive disease and could be an indication of his poor prognosis. In this setting she did not feel he required transfer or necessarily admission if he is feeling as he did on his day of discharge yesterday. I further discussed the case with Dr. Dennis, [facility] oncology on-call who is not directly familiar with the patient but also agrees that if the patient is feeling similarly as he did on discharge from [facility] admission is not necessarily needed. However if patient is feeling more weak than admission for hydration would be reasonable. I did review these discussions with the patient and his at the bedside and at this point they did feel that he was even weaker than he had been on his discharge. Thus, reasonable to admit for further hydration to help with clearance of his bilirubin. Case was discussed with Dr. Cisse, [facility] hospitalist, who will evaluate the patient for admission. Impression & Plan Metastatic disease, Hyperbilirubinemia, Dehydration, Pancreatic cancer Discharge Plan Visit Data *Final* Discharge Date/Time: 01/25/19 00:45 Chief Complaint: Abnormal Labs/Diagnostic Testing Stated Complaint: PANCREATIC CANCER, ABNORMAL LABS ED Provider: Sudarshan Ramesh Discharge Problem: Metastatic disease, Hyperbilirubinemia, Dehydration, Pancreatic cancer Patient Disposition: Admitted As Inpatient Discharge Instructions Interventions: ED Discharge Assessment Last Done: 01/25/19 00:45 The scribe's documentation has been prepared under my direction and personally reviewed by me in its entirety. I confirm that the note above accurately reflects all work, treatment, procedures, and medical decision making performed by me.
[2019-01-25] MEDS ORDERED: OXYCODONE HCL IR 5 MG TAB (IMMEDIATE RELEASE) PO PRN (00:59)
[2019-01-25] MEDS ORDERED: LIDOCAINE 4% CREAM 15 GM TUBE EXT PRN (00:59)
[2019-01-25] MEDS ORDERED: FLUTICASONE PROPIONATE NA SPR 16 GM BTL PRN (00:59)
[2019-01-25] MEDS: SODIUM CHLORIDE 0.9% 1000ML 1,000 ML IV SCH ×3 (01:30→20:57)
[2019-01-25] MEDS ORDERED: ONDANSETRON 4 MG OD TAB PO PRN (02:12)
[2019-01-25] MEDS ORDERED: ZOLPIDEM TARTRATE 5 MG TAB ONE (02:23)
[2019-01-25] MEDS: RESTASIS~ORDER AWAITING ACTION SCH ×4 (02:24→23:57)
[2019-01-25] MEDS ORDERED: DEXTROSE 50% 50 ML SYRINGE IV PRN (02:30)
[2019-01-25] MEDS ORDERED: GLUCAGON FOR INJ 1 MG VIAL IM PRN (02:30)
[2019-01-25] MEDS ORDERED: GLUCOSE 40% GEL 15 GM TUBE PO PRN (02:30)
[2019-01-25] MEDS ORDERED: CARBOHYDRATES FOR HYPOGLYCEMIA PO PRN (02:30)
[2019-01-25] MEDS ORDERED: GLUCOSE 10 TABS/TUBE PO PRN (02:30)
[2019-01-25] MEDS: INSULIN ASPART 100 UNITS/ML 3 ML PEN SC SCH ×4 (05:57→20:45)
[2019-01-25 06:07] LABS: Basophils # (auto) 0.01 K/uL (0-0.2); Basophils % (auto) 0.1 %; Eosinophils # (auto) 0.27 K/uL (0-0.5); Eosinophils % (auto) 3.9 %; Hematocrit (blood only) 31.8 % (42-52); Hemoglobin 11.2 g/dL (14.0-18.0); Immature Granulocytes # (auto) 0.03 K/uL (0.00-0.02); Immature Granulocytes % (auto) 0.4 %; Lymphocytes # (auto) 0.67 K/uL (1.2-3.4); Lymphocytes % (auto) 9.6 %; Mean Corpuscular Hemoglobin 32.8 pg (25-34); Mean Corpuscular Hgb Conc 35.2 g/dL (32-36); Mean Corpuscular Volume 93.3 fL (80-100); Mean Platelet Volume 11.7 fL (7.4-10.4); Monocytes # (auto) 0.57 K/uL (0.11-0.59); Monocytes % (auto) 8.2 %; Neutrophils # (auto) 5.41 K/uL (1.4-6.5); Neutrophils % (auto) 77.8 %; Platelet Count 189 K/uL (130-400); RDW Coefficient of Variation 13.8 % (11.5-14.5); RDW Standard Deviation 47.5 fL (36.4-46.3); Red Blood Count 3.41 M/uL (4.7-6.1); White Blood Count 6.96 K/uL (4.8-10.8)
[2019-01-25 06:48] LABS: Albumin Level 1.9 gm/dl (3.4-5.0); Bilirubin,Total 19.5 mg/dl (0.2-1); Calcium 8.4 mg/dl (8.5-10.1); Creatinine Clr Calc Pharmacy 49.3 ml/min; Est GFR (African American) 61.5; Potassium 3.6 mmol/L (3.5-5.1); Total Protein 5.1 gm/dl (6.4-8.2)
[2019-01-25 07:32] LABS: Bilirubin Direct 15.6 mg/dl (0-0.2)
[2019-01-25] MEDS: PANCREAZE (LIPASE 10,500U) CAP PO SCH ×3 (08:15→17:02)
[2019-01-25] MEDS: FAMOTIDINE 20 MG TAB PO SCH ×2 (08:16→20:44)
[2019-01-25] MEDS: PANTOprazole 40 MG TAB PO SCH (08:17)
[2019-01-25] MEDS: METOPROLOL SUCC 50MG EXT REL TAB PO SCH (08:17)
[2019-01-25] MEDS: HEPARIN SOD 5,000 UNIT/0.5 ML VIAL SQ SCH ×2 (08:27→20:45)
[2019-01-25] MEDS ORDERED: NON-FORMULARY MEDICATION (Bifidobacterium Infantis [Align] 4 MG) PO SCH (09:00)
[2019-01-25] MEDS: MoRPHine SULFATE 2 MG/ML CARP IV PRN ×2 (09:31→17:58)
--- NOTE | 2019-01-25 10:36 | Family Medicine Progress Note ---
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 [facility] records: Had a ERCP plus EUS on 01/19/2019 which showed severe localized biliary stricture likely due to mets. He had a stent placed. EUS showed irregular hypoechoic mass and pancreatic body as well as pancreatic duct dilation. Celiac neurolysis was also performed. 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 T bili on discharge was 18.8 on 01/23/2019. Creatinine on discharge was 1.2, GFR 58. Sodium was 131, chloride 94. Hemoglobin 11.9. LFT: ALT 117, AST 111, alk phos 338, T bili 18.8, lipase normal. Total protein 5.7 and albumin 2.8 Metastatic pancreatic head adenocarcinoma with liver and possibly bone metasta sis -CT abdomen/pelvis today: biliary ductal dilatation on intra as well as extrahepatic duct bases; Diffuse multifocal metastatic deposits within the liver. Interval development of a large pancreatic head and body mass with estimated dimensions of 4 x 3.5 x 5 cm linear dimension. Moderate distention of the proximal to mid pancreatic duct. Pre-existing right lateral abdominal wall hernia. Nonobstructive bowel pattern. Potential early metastatic bone change. -LFT: Total bili 23.9, direct bili 21.1, AST 8109, ALT 130, alk phos 400 -Lipase normal -Repeat CA 19-9 pending -Continue pain regimen: Oxycodone 5 mg every 6 hours and lidocaine cream, Started on morphine 2 mg every 3 hours -Continue Zofran, famotidine, Creon, omeprazole Hyperbilirubinemia: Biliary obstruction s/p stent placement -Ct abdomen/pelvis on admission: Stent present. Biliary ductal dilatation on intra as well as extrahepatic duct bases Bilirubin on discharge from [facility] was 18.8 on 01/23/2019; on admission 23.9; this AM improved to 19.5 -Alk phos 400, 338 on 01/23/2019 -Discussed case with referring Oncologist who referred patient to ensure there wasn't failure/occlusion of stent; which doesn't appear to be; also considerations that biliary damage to epithelium was most likely present for sometime prior to stenting that requires time for it to heal; also in setting of mets to liver causing contributing degree of elevation; Also, bilirubin requires renal excretion and patient noted feeling improved s/p IVF, there could be degree of hypovolemia causing value to be concentrated and less adequate clearance renally. -Trend LFT in the morning Hyponatremia: -Sodium 129. Was previously 128 on prior admission and improved with IV fluids to 137 -On discharge at [facility] was 131 on 01/23/2019 -Urine and serum osm -321 /276 -Lipid profile ordered -Received 1 L NS in the ED, continued on NS 100 cc per hour -? SIADH. follow sodium level Acute kidney injury: Patient with elevated BUN/wujogsugag13/1.6, was 1.2 on 01/23/2019. -Received 1 L normal saline in the ED -Continue IV fluids NS at 100 cc/h -Continue to monitor BMP Concern for possible UTI No urinary symptoms UA positive with normal white blood cell count and vitals Urine culture pending No antibiotic treatment initiated at this time Newly diagnosed diabeteslikely related to pancreatic cancer -Continue home Lantus -Hold metformin in the setting of LAYNE -SSI Hypercholesterolemia: -Hold fenofibrate Hypertension: -Hold HCTZ in setting of recent hyponatremia -Continue Metoprolol F/E/N - NSS at 100mL/hr. restarted on diet DM2 Ppx - Continue Omeprazole, Lovenox for DVT ppx Code -DNR/DNI Dispo -MedSurg (2) Pancreatic mass: (3) Acute kidney injury: (4) Hyponatremia: (5) Biliary obstruction: (6) Hypercholesterolemia: (7) Hypertension: Supervising Physician Co-Signing Physician Notes Resident Physician Supervision Note: I independently interviewed and examined the patient and verified the good history and physical, reviewed labs and image studies, discussed the case with the resident Dr. Antonio and agree with the findings and care plan. Subjective Mr. Lowery notes feeling run down and fatigued, with some lower back pain that he notes is likely from metastatic cancer. He is hopeful to be discharged home tomorrow as his daughter is flying in from [place]. He denies chest pain, shortness of breath, nausea, vomiting, diarrhea, bloody BMs. He generalized itching which he has been dealing with by cutting finger nails short and using Sarna cream. He notes his jaundice has worsened recently. Physical Exam Constitutional: WD/WN, vitals as above cooperative and comfortable generalized jaundice Eyes: icteric sclerae bilaterally Neck: normal visual inspection and trachea midline Respiratory: normal respiratory effort, lungs clear to auscultation Cardiovascular: RRR, no murmur, no edema Gastrointestinal (Abdomen): Percussion/Palpation: abdomen soft; abdomen nontender, no guarding, abdomen not rigid and no abdominal mass Skin: + jaundice RUE medial proximal old healing ecchymosis Neurologic: moves all extremities and awake; no focal motor deficits and not confused Psychiatric: A+Ox3, euthymic affect Eye Contact: good eye contact Results & Data Vital Signs (Past 12 Hours) Vital Signs Temp Pulse Pulse Pulse Resp BP BP 01/25/19 07:15 36.5 C 82 18 117/70 01/25/19 01:00 36.3 C L 84 14 01/25/19 00:30 75 14 118/68 01/25/19 00:00 79 14 132/76 01/24/19 23:30 80 15 127/75 01/24/19 23:00 83 22 119/84 01/24/19 22:48 78 18 BP Pulse Ox 01/25/19 07:15 96 01/25/19 01:00 113/69 96 01/25/19 00:30 98 01/25/19 00:00 95 01/24/19 23:30 98 01/24/19 23:00 98 01/24/19 22:48 130/81 97 Laboratory Results Laboratory Results - last 24 hr 01/24/19 01/24/19 01/24/19 19:01 19:01 19:01 WBC 8.15 RBC 3.69 L Hgb 12.2 L POC Hgb Hct 35.0 L POC Hct MCV 94.9 MCH 33.1 MCHC 34.9 RDW Std Deviation 46.9 H RDW Coeff of Darrell 13.5 Plt Count 240 MPV 11.8 H Immature Gran % (Auto) 0.5 Neut % (Auto) 78.1 Lymph % (Auto) 11.0 Hinds % (Auto) 7.4 Eos % (Auto) 2.6 Baso % (Auto) 0.4 Immature Gran # (Auto) 0.04 H Neut # (Auto) 6.37 Lymph # (Auto) 0.90 L Hinds # (Auto) 0.60 H Eos # (Auto) 0.21 Baso # (Auto) 0.03 POC Sodium Sodium 129 L POC Potassium Potassium 3.7 POC Chloride Chloride 95 L Carbon Dioxide 23 POC Total CO2 Anion Gap 11.0 POC Anion Gap POC BUN BUN 29 H Creatinine POC Creatinine Est Cr Clr Drug Dosing Not Reportable Est GFR ( Amer) Not Reportable Est GFR (Non-Af Amer) Not Reportable BUN/Creatinine Ratio TNP Glucose 126 H POC Glucose POC Glucose (other) Osmolality 276 L Calcium 9.2 POC Ioniz Calcium Summer Phosphorus 3.0 Magnesium 2.0 Total Bilirubin 23.9 H Direct Bilirubin 21.1 H AST 109 H ALT 130 H Alkaline Phosphatase 400 H Total Protein Albumin 2.5 L Globulin TNP Albumin/Globulin Ratio TNP Triglycerides Cholesterol LDL Cholesterol, Calc VLDL Cholesterol, Calc HDL Cholesterol Cholesterol/HDL Ratio Lipase 161 Urine Color Urine Appearance Urine pH Ur Specific [place] Urine Protein Urine Glucose (UA) Urine Ketones Urine Blood Urine Nitrite Urine Bilirubin Urine Urobilinogen Ur Leukocyte Esterase Urine RBC Urine WBC Ur Epithelial Cells Urine Bacteria Hyaline Casts Urine Osmolality Miscellaneous Test Miscellaneous Test 2 01/24/19 01/24/19 01/24/19 19:01 20:17 20:58 WBC RBC Hgb POC Hgb 11.9 L Hct POC Hct 35 L MCV MCH MCHC RDW Std Deviation RDW Coeff of Darrell Plt Count MPV Immature Gran % (Auto) Neut % (Auto) Lymph % (Auto) Hinds % (Auto) Eos % (Auto) Baso % (Auto) Immature Gran # (Auto) Neut # (Auto) Lymph # (Auto) Hinds # (Auto) Eos # (Auto) Baso # (Auto) POC Sodium 128 L Sodium POC Potassium 4.3 Potassium POC Chloride 96 L Chloride Carbon Dioxide POC Total CO2 24 Anion Gap POC Anion Gap 13.0 L POC BUN 36 H BUN Creatinine POC Creatinine 1.6 H Est Cr Clr Drug Dosing Est GFR ( Amer) Est GFR (Non-Af Amer) BUN/Creatinine Ratio Glucose POC Glucose POC Glucose (other) 155 H Osmolality Calcium POC Ioniz Calcium Summer 1.13 Phosphorus Magnesium Total Bilirubin Direct Bilirubin AST ALT Alkaline Phosphatase Total Protein Albumin Globulin Albumin/Globulin Ratio Triglycerides Cholesterol LDL Cholesterol, Calc VLDL Cholesterol, Calc HDL Cholesterol Cholesterol/HDL Ratio Lipase Urine Color Nhi Urine Appearance Slightly Cloudy A Urine pH Ur Specific [place] 1.026 Urine Protein Urine Glucose (UA) Urine Ketones Urine Blood Urine Nitrite Urine Bilirubin Urine Urobilinogen Ur Leukocyte Esterase Urine RBC 0-4 Urine WBC 10-30 H Ur Epithelial Cells >30 H Urine Bacteria 1+ H Hyaline Casts 0-5 Urine Osmolality Miscellaneous Test Pending Miscellaneous Test 2 Pending 01/24/19 01/25/19 01/25/19 20:58 01:16 05:18 WBC 6.96 RBC 3.41 L Hgb 11.2 L POC Hgb Hct 31.8 L POC Hct MCV 93.3 MCH 32.8 MCHC 35.2 RDW Std Deviation 47.5 H RDW Coeff of Darrell 13.8 Plt Count 189 MPV 11.7 H Immature Gran % (Auto) 0.4 Neut % (Auto) 77.8 Lymph % (Auto) 9.6 Hinds % (Auto) 8.2 Eos % (Auto) 3.9 Baso % (Auto) 0.1 Immature Gran # (Auto) 0.03 H Neut # (Auto) 5.41 Lymph # (Auto) 0.67 L Hinds # (Auto) 0.57 Eos # (Auto) 0.27 Baso # (Auto) 0.01 POC Sodium Sodium POC Potassium Potassium POC Chloride Chloride Carbon Dioxide POC Total CO2 Anion Gap POC Anion Gap POC BUN BUN Creatinine POC Creatinine Est Cr Clr Drug Dosing Est GFR ( Amer) Est GFR (Non-Af Amer) BUN/Creatinine Ratio Glucose POC Glucose 94 POC Glucose (other) Osmolality Calcium POC Ioniz Calcium Summer Phosphorus Magnesium Total Bilirubin Direct Bilirubin AST ALT Alkaline Phosphatase Total Protein Albumin Globulin Albumin/Globulin Ratio Triglycerides Cholesterol LDL Cholesterol, Calc VLDL Cholesterol, Calc HDL Cholesterol Cholesterol/HDL Ratio Lipase Urine Color Urine Appearance Urine pH Ur Specific [place] Urine Protein Urine Glucose (UA) Urine Ketones Urine Blood Urine Nitrite Urine Bilirubin Urine Urobilinogen Ur Leukocyte Esterase Urine RBC Urine WBC Ur Epithelial Cells Urine Bacteria Hyaline Casts Urine Osmolality 321 L Miscellaneous Test Miscellaneous Test 2 01/25/19 01/25/19 01/25/19 05:18 05:18 05:51 WBC RBC Hgb POC Hgb Hct POC Hct MCV MCH MCHC RDW Std Deviation RDW Coeff of Darrell Plt Count MPV Immature Gran % (Auto) Neut % (Auto) Lymph % (Auto) Hinds % (Auto) Eos % (Auto) Baso % (Auto) Immature Gran # (Auto) Neut # (Auto) Lymph # (Auto) Hinds # (Auto) Eos # (Auto) Baso # (Auto) POC Sodium Sodium 132 L POC Potassium Potassium 3.6 POC Chloride Chloride 100 Carbon Dioxide 25 POC Total CO2 Anion Gap 7.0 POC Anion Gap POC BUN BUN 24 H Creatinine 1.33 POC Creatinine Est Cr Clr Drug Dosing 49.3 Est GFR ( Amer) 61.5 Est GFR (Non-Af Amer) 53.0 BUN/Creatinine Ratio 18.0 Glucose 68 L POC Glucose 71 POC Glucose (other) Osmolality Calcium 8.4 L POC Ioniz Calcium Summer Phosphorus Magnesium Total Bilirubin 19.5 H Direct Bilirubin 15.6 H AST 87 H ALT 104 H Alkaline Phosphatase 322 H Total Protein 5.1 L Albumin 1.9 L Globulin Albumin/Globulin Ratio Triglycerides Cancelled Cholesterol Cancelled LDL Cholesterol, Calc Cancelled VLDL Cholesterol, Calc Cancelled HDL Cholesterol Cancelled Cholesterol/HDL Ratio Cancelled Lipase Urine Color Urine Appearance Urine pH Ur Specific [place] Urine Protein Urine Glucose (UA) Urine Ketones Urine Blood Urine Nitrite Urine Bilirubin Urine Urobilinogen Ur Leukocyte Esterase Urine RBC Urine WBC Ur Epithelial Cells Urine Bacteria Hyaline Casts Urine Osmolality Miscellaneous Test Pending Miscellaneous Test 2 01/25/19 11:56 WBC RBC Hgb POC Hgb Hct POC Hct MCV MCH MCHC RDW Std Deviation RDW Coeff of Darrell Plt Count MPV Immature Gran % (Auto) Neut % (Auto) Lymph % (Auto) Hinds % (Auto) Eos % (Auto) Baso % (Auto) Immature Gran # (Auto) Neut # (Auto) Lymph # (Auto) Hinds # (Auto) Eos # (Auto) Baso # (Auto) POC Sodium Sodium POC Potassium Potassium POC Chloride Chloride Carbon Dioxide POC Total CO2 Anion Gap POC Anion Gap POC BUN BUN Creatinine POC Creatinine Est Cr Clr Drug Dosing Est GFR ( Amer) Est GFR (Non-Af Amer) BUN/Creatinine Ratio Glucose POC Glucose 76 POC Glucose (other) Osmolality Calcium POC Ioniz Calcium Summer Phosphorus Magnesium Total Bilirubin Direct Bilirubin AST ALT Alkaline Phosphatase Total Protein Albumin Globulin Albumin/Globulin Ratio Triglycerides Cholesterol LDL Cholesterol, Calc VLDL Cholesterol, Calc HDL Cholesterol Cholesterol/HDL Ratio Lipase Urine Color Urine Appearance Urine pH Ur Specific [place] Urine Protein Urine Glucose (UA) Urine Ketones Urine Blood Urine Nitrite Urine Bilirubin Urine Urobilinogen Ur Leukocyte Esterase Urine RBC Urine WBC Ur Epithelial Cells Urine Bacteria Hyaline Casts Urine Osmolality Miscellaneous Test Miscellaneous Test 2 Medications Administered Lipase/Protease/Amylase (Pancreaze (Lipase 10,500u)) 1 cap PO TIDM LAKIA Stop: 02/24/19 07:59 Last Admin: 01/25/19 12:40 Dose: 1 cap Documented by: [id number] Admin: 01/25/19 08:15 Dose: 1 cap Documented by: [id number] Famotidine (Pepcid) 20 mg PO BID LAKIA Stop: 02/24/19 08:59 Last Admin: 01/25/19 08:16 Dose: 20 mg Documented by: [id number] Heparin Sodium (Porcine) (Heparin Sodium (Porcine)) 5,000 units SQ Q12 LAKIA Stop: 02/24/19 08:59 Last Admin: 01/25/19 08:27 Dose: 5,000 units Documented by: [id number] Cosigned by: [id number] Sodium Chloride (Nss 1000ml) 1,000 mls @ 100 mls/hr IV .Q10H LAKIA Stop: 02/24/19 00:58 Last Admin: 01/25/19 11:41 Dose: 100 mls/hr Documented by: [id number] Infusion: 01/25/19 11:30 Dose: 100 mls/hr Documented by: [id number] Admin: 01/25/19 01:30 Dose: 100 mls/hr Documented by: [id number] Metoprolol Succinate (Toprol Xl) 100 mg PO QAM LAKIA Stop: 02/24/19 08:59 Last Admin: 01/25/19 08:17 Dose: 100 mg Documented by: [id number] Miscellaneous (Order Awaiting Action) 1 ea N/A QS LAKIA Stop: 02/24/19 02:29 Last Admin: 01/25/19 16:04 Dose: Not Given Documented by: [id number] Admin: 01/25/19 10:06 Dose: Not Given Documented by: [id number] Admin: 01/25/19 02:24 Dose: Not Given Documented by: [id number] Miscellaneous (Order Awaiting Action) 1 ea N/A QS LAKIA Stop: 02/24/19 02:29 Last Admin: 01/25/19 16:04 Dose: Not Given Documented by: [id number] Admin: 01/25/19 10:05 Dose: Not Given Documented by: [id number] Admin: 01/25/19 02:25 Dose: Not Given Documented by: [id number] Morphine Sulfate (Morphine Sulfate) 2 mg IV Q3H PRN PRN Reason: Pain Stop: 02/08/19 00:58 Last Admin: 01/25/19 09:31 Dose: 2 mg Documented by: [id number] Pantoprazole Sodium (Protonix) 40 mg PO DAILY LAKIA Stop: 02/24/19 08:59 Last Admin: 01/25/19 08:17 Dose: 40 mg Documented by: [id number] PG Care Time/CCT Total # of Minutes Spent Total Time Spent with Patient: Total time spent is greater than 50% in coordination of care (as documented) at patient's floor/unit and/or counseling patient: Resident Activity Tracking Resident Involvement: Resident Care Provided Care Provided: Adult Hospital Medicine (1) Hypertension Hypertension type: essential hypertension Qualified Code(s): I10 - Essential (primary) hypertension
[2019-01-25] MEDS ORDERED: MoRPHine SULFATE 2 MG/ML CARP IV STA (12:53)
[2019-01-25] MEDS ORDERED: Nursing to Pharmacy Communication ONE (14:18)
[2019-01-25] MEDS: ONDANSETRON INJ 2 MG/ML 2 ML VIAL IV PRN (18:32)
[2019-01-25] MEDS ORDERED: ZOLPIDEM TARTRATE 5 MG TAB PO SCH (21:00)
[2019-01-25] MEDS ORDERED: INSULIN GLARGINE SOLOSTAR 100 UNITS/ML 3 ML PEN SQ SCH (21:00)
[2019-01-26] MEDS: SODIUM CHLORIDE 0.9% 1000ML 1,000 ML IV SCH (05:36)
[2019-01-26 05:59] LABS: Basophils # (auto) 0.02 K/uL (0-0.2); Basophils % (auto) 0.3 %; Eosinophils % (auto) 2.7 %; Hematocrit (blood only) 31.8 % (42-52); Hemoglobin 11.1 g/dL (14.0-18.0); Immature Granulocytes # (auto) 0.04 K/uL (0.00-0.02); Immature Granulocytes % (auto) 0.5 %; Lymphocytes # (auto) 1.36 K/uL (1.2-3.4); Lymphocytes % (auto) 18.2 %; Mean Corpuscular Hemoglobin 32.6 pg (25-34); Mean Corpuscular Hgb Conc 34.9 g/dL (32-36); Mean Corpuscular Volume 93.5 fL (80-100); Monocytes # (auto) 0.75 K/uL (0.11-0.59); Monocytes % (auto) 10.1 %; Neutrophils # (auto) 5.09 K/uL (1.4-6.5); Neutrophils % (auto) 68.2 %; Platelet Count 236 K/uL (130-400); RDW Standard Deviation 47.7 fL (36.4-46.3); White Blood Count 7.46 K/uL (4.8-10.8)
[2019-01-26 07:11] VITALS: BP 108/59; TEMP 98.2; O2SAT 97
--- NOTE | 2019-01-26 07:24 | Discharge Summary ---
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 Patient was discharged yesterdayplease refer to [facility] notes below. Patient currently reports upper abdominal pain radiating to back associated with nausea and heartburn which is pretty persistent. He also re ports bloating whenever he eats. He has not had much to eat or drink since being discharged. Also reports shortness of breath/feeling winded if he walks down the [place] but not when he is laying down or going to the bathroom, Left- sided rib pain, itchy skin. Patient also reports occasional sugar spikes for which she takes insulin. He had some diarrhea over the weekend which turned into constipation and he had good bowel movements before going to [facility]. He took some laxative last night and had a good bowel movement this morning as well which was dark brown in color and nonbloody. Patient denies any fever, chills, headache, lightheadedness, hematuria, hematochezia, melena, constipation, dysuria. [facility] records reviewed: Had a ERCP plus EUS on 01/19/2019 which showed severe localized biliary stricture likely due to mets. He had a stent placed. EUS showed irregular hypoechoic mass and pancreatic body as well as pancreatic duct dilation. Celiac neurolysis was also performed. 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 T bili on discharge was 18.8 on 01/23/2019. Creatinine on discharge was 1.2, GFR 58. Sodium was 131, chloride 94. Hemoglobin 11.9. LFT: ALT 117, AST 111, alk phos 338, T bili 18.8, lipase normal. Total protein 5.7 and albumin 2.8 Social history: Reports smoking for 20 years 2 packs/day but quit 30 years ago. Drinks an occasional wine but he reports drinking more when he was younger. Admission Exam Per Admitting Provider General: In NAD, pleasant Neuro: A&O x 4 HEENT: scleral icterus, dry oral mucosa Pulm: CTAB equal breath sounds bilaterally CV: RRR, no m/r/g, cap refill 3 secs Abdomen:+BS, TTP in all quadrants especially over upper abdomen and epigastric region, no-rebound tenderness, non-distended, RUQ region "loose muscle" s/p p artial nephrectomy with rib removal - non-TTP, takes up most of RUQ region LE: no LE edema, no calf TTP Skin: generalized jaundice Principal Diagnosis Hyperbilirubinemia Discharge Exam Constitutional WD/WN, vitals as above cooperative and comfortable Neck normal visual inspection and trachea midline Respiratory normal respiratory effort, lungs clear to auscultation Cardiovascular RRR, no murmur, no edema Gastrointestinal (Abdomen) Percussion/Palpation: abdomen soft; abdomen nontender, no guarding, abdomen not rigid and no abdominal mass Skin + jaundice Neurologic moves all extremities and awake; no focal motor deficits and not confused Psychiatric A+Ox3, euthymic affect Eye Contact: good eye contact Discharge Data Allergies Allergy/AdvReac Type Severity Reaction Status Date / Time BRADY Inhibitors Allergy Mild PT STATES Verified 01/24/19 20:22 DOESNT WORK Penicillins Allergy Mild FAMILY HX Verified 01/24/19 20:22 carbamazepine Allergy Rash Verified 01/24/19 20:22 Milk Containing Products AdvReac Unknown GAS Verified 01/24/19 20:22 gluten AdvReac SENSITIVITY-GI Verified 01/24/19 20:22 UPSET Consultations 01/24/19 22:06 ED Decision to Admit Stat Ordered Studies 01/24/19 19:18 CT abd pelvis IV con only Stat 1. Findings of biliary ductal dilatation on intra as well as extrahepatic duct bases.. 2. Diffuse multifocal metastatic deposits within the liver. 3. Interval development of a large pancreatic head and body mass with estimated dimensions of 4 x 3.5 x 5 cm linear dimension. 4. Moderate distention of the proximal to mid pancreatic duct. 5. Pre-existing right lateral abdominal wall hernia. 6. Nonobstructive bowel pattern. 7. 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 He had abnormally elevated Bilirubin level which was concerning for possible biliary stent failure. Complete course of care below: [facility] records: Had a ERCP plus EUS on 01/19/2019 which showed severe localized biliary stricture likely due to mets. He had a stent placed. EUS showed irregular hypoechoic mass and pancreatic body as well as pancreatic duct dilation. Celiac neurolysis was also performed. 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 T bili on discharge was 18.8 on 01/23/2019. Creatinine on discharge was 1.2, GFR 58. Sodium was 131, chloride 94. Hemoglobin 11.9. LFT: ALT 117, AST 111, alk phos 338, T bili 18.8, lipase normal. Total protein 5.7 and albumin 2.8 Hyperbilirubinemia: Biliary obstruction s/p stent placement -Ct abdomen/pelvis on admission: Stent present. Biliary ductal dilatation on intra as well as extrahepatic duct bases Bilirubin on discharge from [facility] [place] was 18.8 on 01/23/2019; on admission 23.9; AM of admission improved to 19.5; then on 19.2. -Alk phos 400, 338 on 01/23/2019 -Discussed case with referring Oncologist who referred patient to ensure there wasn't failure/occlusion of stent; which doesn't appear to be; also considerations that biliary damage to epithelium was most likely present for sometime prior to stenting that requires time for it to heal; also in setting of mets to liver causing contributing degree of elevation; Also, bilirubin requires renal excretion and patient noted feeling improved s/p IVF, there could be degree of hypovolemia causing value to be concentrated and less adequate clearance renally. Metastatic pancreatic head adenocarcinoma with liver and possibly bone metastasis -CT abdomen/pelvis today: biliary ductal dilatation on intra as well as extrahepatic duct bases; Diffuse multifocal metastatic deposits within the liver. Interval development of a large pancreatic head and body mass with estimated dimensions of 4 x 3.5 x 5 cm linear dimension. Moderate distention of the proximal to mid pancreatic duct. Pre-existing right lateral abdominal wall hernia. Nonobstructive bowel pattern. Potential early metastatic bone change. -LFT: Total bili 23.9, direct bili 21.1, AST 109, ALT 130, alk phos 400 -Lipase normal -Repeat CA 19-9 pending -Pain was adequately controlled with pain regimen: Oxycodone 5 mg every 6 hours PRN and lidocaine cream -Was also kept comfortable from GI upset with Zofran, famotidine, Creon, omeprazole Hyponatremia: -Sodium 129. Was previously 128 on prior admission and improved with IV fluids to 137; then was 133. -On discharge at [facility] was 131 on 01/23/2019 -Urine and serum osm -321 /276 -Received 1 L NS in the ED, and was provided with NS 100 cc per hour Acute kidney injury: Patient with elevated BUN/[id number]/1.6, was 1.2 on 01/23/2019. -Received 1 L normal saline in the ED - Received IV fluids NS at 100 cc/h Concern for possible UTI No urinary symptoms UA positive with normal white blood cell count and vitals Urine culture pending No antibiotic treatment initiated at this time Newly diagnosed diabeteslikely related to pancreatic cancer -Continue home Lantus -Hold metformin in the setting of LAYNE -SSI Hypercholesterolemia: -Held fenofibrate during admission Hypertension: -Held HCTZ in setting of recent hyponatremia, but okay to continue on discharge -Continue Metoprolol (2) Pancreatic mass: (3) Acute kidney injury: (4) Hyponatremia: (5) Biliary obstruction: (6) Hypercholesterolemia: (7) Hypertension: Total Time Total Time Spent Total Time Spent (In Minutes): 35 Discharge Plan Discharge Items Patient Disposition: Home - Self-Care Reason For Visit: ELEVATED BILI,HYPNOATREMIA,LAYNE Discharge Diagnosis: Hyperbilirubinemia Activity: Resume your previous activity Non-emergency contact: Primary Care Provider Call non-emergency contact if: you have any medication questions and your symptoms worsen Follow-up/Referrals: Jefferson Edwards MD [Primary Care Provider] - Diet: Regular Addtl Attending Provider Instructions: You were evaluated for hyperbilirubinemia (Elevation of Bilirubiin in the blood). This value has improved. Admission was in order to evaluate that your recently placed biliary stent wasn't failing. There was a component of possible dehydration that lead to your bilirubin. Bilirubin gets eliminated from the body through the kidneys. Please stay properly hydrated so your body has enough fluids to allow your kidneys to filter out bilirubin properly. The value of your Total Bilirubin on admission was 23.9 which on repeat morning of 01/26 was 19.5 then on day of discharge was 19.2. Your direct bilirubin which shows levels of bilirubin after the liver has processed it was 21.1 when you were admitted, then repeat on 01/26 was 15.6. These levels will go down slowly after stenting. Please make sure to make all your follow up appointments appropriately. Continue previous medications and care plans. Pending Studies at Discharge: No Stand-Alone Forms: My [facility], Smoking Cessation Medications and DC Order Prescriptions: Continued metformin 500 mg Tablet 500 mg PO HS RF: 0 lidocaine 4 % Cream 1 applic TOPICAL TID PRN (Reason: Pain) RF: 0 famotidine 20 mg tablet 20 mg PO BID RF: 0 ondansetron 4 mg tablet,disintegrating 4 mg PO TID PRN (Reason: Nausea) RF: 0 oxycodone 5 mg tablet 5 mg PO Q6H PRN (Reason: Pain) RF: 0 Lantus Solostar U-100 Insulin 100 unit/mL (3 mL) insulin pen 21 unit subcut HS RF: 0 Align 4 mg Capsule 4 mg PO QAM RF: 0 Creon 12,000-38,000 -60,000 unit capsule,delayed release(DR/EC) 1 cap PO TIDM RF: 0 celecoxib [Celebrex] 200 mg Capsule 200 mg PO QAM RF: 0 metoprolol succinate 100 mg Tablet Extended Release 24 Hr 100 mg PO QAM RF: 0 aspirin 81 mg Tablet,Delayed Release (Dr/Ec) 81 mg PO HS RF: 0 sildenafil [Viagra] 100 mg Tablet 100 mg PO DAILY PRN (Reason: Erectile Dysfunction) RF: 0 fluticasone propionate [Flonase Allergy Relief] 50 mcg/actuation Helix,Suspension 2 spray INTRANASAL DAILY PRN (Reason: Congestion) RF: 0 Restasis 0.05 % Dropperette 1 drp OPB BID RF: 0 fenofibrate 160 mg Tablet 160 mg PO HS RF: 0 omeprazole 20 mg Tablet,Delayed Release (Dr/Ec) 20 mg PO QAM RF: 0 fluorometholone [FML Liquifilm] 0.1 % drops,suspension 1 drp OPB BID RF: 0 hydrochlorothiazide 12.5 mg capsule 12.5 mg PO HS RF: 0 Nutra Veiw 1 tab PO QAM RF: 0 lancets [OneTouch Delica Lancets] 33 gauge misc .ROUTE .MEDSUPPLY Qty: 100 RF: 0 OneTouch Verio strip .ROUTE .MEDSUPPLY Qty: 100 RF: 1 Discharge Orders: Discharge Order (Routine); Ordered 01/26/19 Ordered By: Karson Antonio Admission Data Admit Date/Time: 01/24/19 23:33 Attending Provider: Tabitha Stephens Admit Provider: Brooke Cisse Primary Care Provider: Jefferson Edwards Other Providers: Brooke Cisse Other Interventions: Discharge Summary Assessment (RN) Last Done: 01/26/19 13:03 DC Date/Time DO NOT enter until pt leaves facility: 01/26/19 14:15 Supervising Physician Co-Signing Physician Notes Resident Physician Supervision Note: I independently interviewed and examined the patient and verified the good history and physical, reviewed labs and image studies, discussed the case with the resident Dr. Antonio and agree with the findings and care plan. Resident Activity Tracking Resident Involvement: Resident Care Provided Care Provided: Adult Hospital Medicine
[2019-01-26] MEDS: RESTASIS~ORDER AWAITING ACTION SCH (08:12)
[2019-01-26] MEDS: HEPARIN SOD 5,000 UNIT/0.5 ML VIAL SQ SCH (08:14)
[2019-01-26] MEDS: PANCREAZE (LIPASE 10,500U) CAP PO SCH ×2 (08:14→12:37)
[2019-01-26] MEDS: PANTOprazole 40 MG TAB PO SCH (08:14)
[2019-01-26] MEDS: FAMOTIDINE 20 MG TAB PO SCH (08:14)
[2019-01-26] MEDS: METOPROLOL SUCC 50MG EXT REL TAB PO SCH (08:15)
[2019-01-26] MEDS: INSULIN ASPART 100 UNITS/ML 3 ML PEN SC SCH ×2 (08:16→12:37)
[2019-01-26] MEDS: ONDANSETRON INJ 2 MG/ML 2 ML VIAL IV PRN (11:42)
[2019-01-26 11:59] LABS: Albumin Globulin Ratio 0.6 (0.9-2); Albumin Level 1.9 gm/dl (3.4-5.0); BUN Creatinine Ratio 16.7 (10-20); Bilirubin,Total 19.2 mg/dl (0.2-1); Creatinine Clr Calc Pharmacy 63.6 ml/min; Est GFR (African American) 83.7; Est GFR (Non-African American) 72.2; Globulin 3.3 gm/dl (2.5-4.0); Potassium 3.8 mmol/L (3.5-5.1); Total Protein 5.2 gm/dl (6.4-8.2)
[2019-01-26 13:06] VITALS: PULSE 93
== END 2019-01-26 14:15 | disposition home or self-care (01) | DRG 435 ==
LOC: ED 18:19 → SUATTDRO 23:33 → 4W 23:33